=== PATIENT | female | born 1955 | race Caucasian/White ===

== ENCOUNTER 2023-09-28 06:12 | Outpatient (RCR) | payer MEDICARE, OTHER, SELFPAY | END 2023-09-28 23:59 | disposition home or self-care (01) | LOC: RPT 06:12 | PROVIDERS: ATTENDING PHYSICIAN Physician Assistant Surgical; FAMILY PHYSICIAN Internal Medicine | DX: Z47.89 Encounter for other orthopedic aftercare (principal); M54.2 Cervicalgia; Z73.6 Limitation of activities due to disability | CPT/HCPCS: 97110; 97162 ==

== ENCOUNTER → 2023-10-05 13:54 | Outpatient (REF) | payer MEDICARE, OTHER, SELFPAY | LOC: WDC 13:54 | PROVIDERS: ATTENDING PHYSICIAN Surgery; FAMILY PHYSICIAN Internal Medicine | DX: R92.2 Inconclusive mammogram (principal) | CPT/HCPCS: 76641 ==

== ENCOUNTER 2023-10-26 09:10 | Outpatient (RCR) | payer MEDICARE, OTHER, SELFPAY | END 2023-10-26 23:59 | disposition home or self-care (01) | LOC: RPT 09:10 | PROVIDERS: ATTENDING PHYSICIAN Physician Assistant Surgical; FAMILY PHYSICIAN Internal Medicine | DX: M54.2 Cervicalgia (principal); Z98.890 Other specified postprocedural states; Z73.6 Limitation of activities due to disability | CPT/HCPCS: 97010; 97110; 97140 ==

== ENCOUNTER → 2023-11-10 08:27 | Outpatient (REF) | payer MEDICARE, OTHER, SELFPAY | LOC: RAD 08:27 | PROVIDERS: ATTENDING PHYSICIAN Internal Medicine | DX: Z13.820 Encounter for screening for osteoporosis (principal); Z78.0 Asymptomatic menopausal state | CPT/HCPCS: 77080 ==

== ENCOUNTER → 2023-11-10 17:36 | Outpatient (REF) | payer MEDICARE, OTHER, SELFPAY | LOC: PAVMRI 17:36 | PROVIDERS: ATTENDING PHYSICIAN Internal Medicine | DX: M54.6 Pain in thoracic spine (principal) | CPT/HCPCS: 72146 ==

== ENCOUNTER 2023-11-23 08:58 | Outpatient (RCR) | payer MEDICARE, OTHER, SELFPAY | END 2023-11-23 23:59 | disposition home or self-care (01) | LOC: RPT 08:58 | PROVIDERS: ATTENDING PHYSICIAN Physician Assistant Surgical; FAMILY PHYSICIAN Internal Medicine | DX: M54.2 Cervicalgia (principal); Z98.890 Other specified postprocedural states; Z73.6 Limitation of activities due to disability | CPT/HCPCS: 97010; 97110; 97140 ==

== ENCOUNTER → 2023-11-23 10:12 | Outpatient (REF) | payer MEDICARE, OTHER, SELFPAY ==
[2023-11-23 11:50] LABS: ALT (SGPT) 25 U/L (0-35); AST (SGOT) 32 U/L (14-36); Albumin 4.6 g/dl (3.5-5.0); Alkaline Phosphatase 110 U/L (38-126); Blood Urea Nitrogen 26 mg/dl (7-17); Calcium 10.3 mg/dl (8.4-10.2); Carbon Dioxide 22 mmol/L (22-30); Chloride 106 mmol/L (98-107); Glucose 96 mg/dl (70-99); HDL Cholesterol 71 mg/dl; LDL Cholesterol, Calculated 93 mg/dl; Potassium 4.5 mmol/L (3.5-5.1); Sodium 137 mmol/L (135-145); Total Bilirubin 0.2 mg/dl (0.2-1.3); Total Cholesterol 201 mg/dl (50-199); Total Protein 7.6 g/dl (6.3-8.2); Triglyceride 187 mg/dl (10-149); Very Low Density Lipoprotein 37 mg/dl (0-30); eGFR > 60.00
[2023-11-23 12:19] LABS: TSH Reflex To Free T4 1.29 uIU/ml (0.47-4.68)
[2023-11-23 14:21] LABS: Glycohemoglobin (HgbA1c) 5.4 % (4.0-5.6)
== END ==
LOC: REG 10:12
PROVIDERS: ATTENDING PHYSICIAN Internal Medicine; REFERRING PHYSICIAN Internal Medicine
DX: I10 Essential (primary) hypertension (principal); R73.03 Prediabetes; E78.00 Pure hypercholesterolemia, unspecified; K76.0 Fatty (change of) liver, not elsewhere classified; E66.01 Morbid (severe) obesity due to excess calories
CPT/HCPCS: 36415; 80053; 80061; 83036; 84443

== ENCOUNTER 2023-12-21 08:55 | Outpatient (RCR) | payer MEDICARE, OTHER, SELFPAY | END 2023-12-21 23:59 | disposition home or self-care (01) | LOC: RPT 08:55 | PROVIDERS: ATTENDING PHYSICIAN Physician Assistant Surgical; FAMILY PHYSICIAN Internal Medicine | DX: M54.2 Cervicalgia (principal); Z98.890 Other specified postprocedural states; Z73.6 Limitation of activities due to disability | CPT/HCPCS: 97010; 97110; 97140 ==

== ENCOUNTER 2024-01-09 08:58 | Outpatient (RCR) | payer MEDICARE, OTHER, SELFPAY | END 2024-01-09 23:59 | disposition home or self-care (01) | LOC: RPT 08:58 | PROVIDERS: ATTENDING PHYSICIAN Physician Assistant Surgical; FAMILY PHYSICIAN Internal Medicine | DX: M54.2 Cervicalgia (principal); Z98.890 Other specified postprocedural states; Z73.6 Limitation of activities due to disability | CPT/HCPCS: 97110; 97140 ==

== ENCOUNTER 2024-01-11 07:03 | Emergency (ER) | payer MEDICARE, OTHER, SELFPAY ==
[2024-01-11 07:03] VITALS: BMI 40.0
[2024-01-11 07:04] VITALS: BP 188/108
--- NOTE | 2024-01-11 08:22 | ED.GENMED ---
History of Present Illness
General
Chief Complaint: Extremity Pain (non-traumatic)
Source: patient
Exam Limitations: none
Time Seen by Provider: 01/11/24 07:55
Travel History
Have you had any contact with someone who has COVID-19?: No
Do you have any symptoms of coronavirus? Fever > 100 degrees, chills, cough, shortness of breath, sore throat, loss of taste or smell, muscle aches, or headache?: No
History of Present Illness
History of Present Illness:
Patient with multiple complaints. Started with a migraine-like headache yesterday. Migraine felt like a typical migraine but more severe. Also lasted longer throughout the evening. Otherwise it was a typical migraine. Also had some epigastric
pain last evening that resolved. In addition she has had a few weeks of left arm pain and left calf pain and is concerned about a blood clot. Primary reason for being here is concern for blood clot. Headache is resolved she has no chest pain
shortness of breath abdominal pain or neurologic symptoms at this time
Past History
Past History
ED Past Medical History: Asthma, Fibromyalgia, GERD, HTN, Hypercholesterolemia, Psychiatric (Bipolar), Other (Previous history of superficial thrombosis and possible DVT), Other (IBS) and Other (migraines)
ED Past Surgical History: Gynecological, Orthopedic and Other (Gastric volvulous surgery in )
Social History
Tobacco: Non-smoker
Alcohol: None
Living: with family
Review of Systems
Review of Systems
All Other Systems: Not applicable
Constitutional: Denies fever
Respiratory: Reports no symptoms
Cardiac: Reports no symptoms
Phy Exam
Physical Exam
Physical Exam:
GENERAL: Alert and oriented in no apparent distress
EYE: Orbits normal.
NECK: Supple, no significant adenopathy.
ENT: Pharynx without erythema
CARDIAC: Regular rate and rhythm without any obvious murmurs.
LUNGS: Clear breath sounds,normal
ABDOMEN: Soft, without focal tenderness or distention
NEUROLOGICAL: Alert and oriented , grossly non-focal
SKIN: Warm and dry, no rash or lesion, no discoloration, skin intact.
MUSCULOSKELETAL: No edema,no deformity.Good color. No arm swelling. No cord. No leg swelling no cord. Good distal pulses and color. Pulses are strong bilaterally.
PSYCH: Normal and appropriate interaction.
Course
Orders/Labs/Results
Orders:
Orders
01/11/24 07:10
Electrocardiogram (*1) Urgent
Reason for Study: Chest Pain
EKG- Treatment ONCE
01/11/24 08:03
IV Insert/Care/Rem.- Treatment PRN
Pulse Ox/cont/shift [RESP] Stat
Quantity: 1
US Periph Venous LOWER Ext LT Urgent
Comment:
Reason For Exam: pain
US Periph Venous UPPER Ext LT Urgent
Comment:
Reason For Exam: pain
01/11/24 08:04
Cardiac Monitoring- Treatment ONCE
01/11/24 09:43
Complete Blood Count/With Diff Urgent
Comprehensive Metabolic Panel Urgent
D-Dimer Urgent
Lipase Urgent
Troponin I Urgent
Abnormal Lab Results
01/11/24
09:43
MCHC 32.8 L g/dL
(33.0-37.0)
RDW 15.7 H %
(11.5-14.5)
Monocytes % 10.9 H %
(1.7-9.3)
D-Dimer 0.82 H ug/mlFEU
(0.00-0.50)
Chloride 109 H mmol/L
(98-107)
01/11/24 09:43
01/11/24 09:43
Vital Signs
Initial and Last Documented VS:
Initial Vital Signs
Temp Pulse Resp BP Pulse Ox
98.2 F 115 20 188/108 97
01/11/24 07:04 01/11/24 07:04 01/11/24 07:04 01/11/24 07:04 01/11/24 07:04
Last Documented Vital Signs
Temp Pulse Resp BP Pulse Ox
98.2 F 80 19 116/62 98
01/11/24 07:04 01/11/24 12:15 01/11/24 12:15 01/11/24 12:00 01/11/24 12:15
MDM/Problems Addressed
Differential Diagnosis Includes:
Patient has multiple complaints. Major ones appear to be concern for a blood clot to the left arm and left leg. Clinically doubt this. However we will get a Doppler ultrasound. No clinical arterial issue. Highly highly doubt dissection. Highly
doubt cardiac. Epigastric pain has resolved. Very low suspicion for intracranial bleed with the headache given the chronic headaches for years and the fact that she describes this as it is a migraine although more severe. She has had the severity
of migraine in the past. Workup will include ultrasounds of the left arm and left leg cardiac workup D-dimer.
*Radiology
Radiology exam reviewed: radiology read reviewed (Negative leg and arm ultrasound)
*Pulse Oximetry
Patient hypoxic: no
*EKG
Interpreted by ED Provider?: Yes
Interpretation: normal
Comparison EKG: no changes
Heart Rate: 93
Rate: normal
Rhythm: sinus
[place]: normal axis
Interval: normal interval
QRS Pattern: normal QRS
Ischemia: no ischemia
*Sewing Techniques Demonstrator Interpretation
Rate: normal
Interpretation: normal
Heart Rate: 78
Rhythm: sinus
*Critical Care Note
Total Time (30-74mins, 75-104mins- exclusive of procedures): Not Applicable
Data Reviewed
Review of Other/Old Records Reveals: Labs, Records and Testing
Update Note
Update Note:
Patient is remained stable and nontoxic. Of her testing she does have a trace positive D-dimer. Clinically however she has no chest pain or shortness of breath she presents really for evaluation of this left arm and left leg pain and concern for
DVT. There is no DVT in the arm or leg. She does have a dye allergy to the IV dye. This caused hives all over. Lengthy review and discussion and joint decision-making with the patient. Risk of allergic reaction versus very sick of missing a
pulmonary emboli. Very very low suspicion for pulmonary emboli given all of the above, and joint decision we will hold on CT scan.
1255.... Patient is remained medically stable and nontoxic. Discharged to follow-up
ED Attending Note
-
Portions of this chart may have been created with voice recognition software.� Occasional wrong word or��sound alike� substitutions may have occurred due to the inherent limitations of voice recognition software.
Discharge Plan
Departure
Patient Disposition: Home (Routine Discharge)
Date of Disposition: 01/11/24
Time of Disposition: 12:55
Patient with high blood pressure during this ER visit?: Yes
Discharge Problem:
Left arm and left leg pain, History of migraines
Instructions: Migraines (DC), BLOOD PRESSURE
Prescriptions:
No Action
Centrum Silver Women 1 EACH tablet
1 ea PO DAILY
fluticasone propionate 1 SPRAY spray,suspension
2 spray intranasal DAILYPRN PRN (Reason: allergies)
famotidine 20 MG tablet
40 mg PO QPM
nortriptyline 10 MG capsule
10 mg PO Q48H
albuterol sulfate 1 PUFF HFA aerosol inhaler
2 puff inhalation R Q6HPRN PRN (Reason: asthma)
escitalopram oxalate 10 MG tablet
10 mg PO QPM
Systane Ultra (PF) 1 EACH dropperette
1 drp BOTH EYES QID
metformin 500 MG tablet extended release 24 hr
500 mg PO BID
Azo Bladder Control 300 mg Capsule
1 cap PO DAILYPRN PRN (Reason: INCREASE URINE FREQUENCY) Qty: 0
primidone 50 MG tablet
50 mg PO BID
simethicone [Gas-X] 80 mg Tablet,Chewable
160 mg PO DAILYPRN PRN (Reason: GAS PAINS)
nortriptyline 10 MG capsule
20 mg PO Q48H
azelastine 1 SPRAY aerosol,spray
2 spray intranasal BID
fexofenadine [Amisha] 180 mg Tablet
180 mg PO DAILY
rosuvastatin 20 mg Tablet
20 mg PO DAILY
estradiol [Estrace] 0.01 % (0.1 mg/gram) Cream
1 g VAGINAL SUFRSA
topiramate [Topamax] 50 mg Tablet
100 mg PO Q48H
cholecalciferol (vitamin D3) [Vitamin D3] 50 mcg (2,000 unit) Tablet
50 mcg PO DAILY
rizatriptan 10 mg Tablet
0 mg PO .COMPLEX
Rx Instructions:
take 1 tab at onset of headache; if no relief may repeat 1 tab after at least 2 hrs; max = 3 tabs/24 hr
topiramate [Topamax] 50 mg Tablet
150 mg PO Q48H
Visbiome 112.5 billion cell Capsule
1 cap PO DAILY
fluticasone propion-salmeterol [Advair HFA] 115-21 mcg/actuation Hfa Aerosol Inhaler
2 puff INHALATION R BID
Referrals:
Michelle Ortega MD [Family Provider] - Follow up in 2-3 days
Activity Restrictions/Additional Instructions:
Follow-up closely with your primary physician
Return with any unusual headaches, recurring left arm or left leg pain, chest pain shortness of breath or any other concerning symptoms
Interventions
Interventions:
*Risk Screen - Suicide Last Done: 01/11/24 07:04
*General Assessment Last Done: 01/11/24 07:04
*Neglect/Abuse Screening Last Done: 01/11/24 07:04
ED-Skin Assessment Last Done: 01/11/24 09:25
ED-Peripheral Vascular Assessment Last Done: 01/11/24 09:25
ED- Neurological Assessment Last Done: 01/11/24 09:25
ED-Musculoskeletal Assessment Last Done: 01/11/24 09:25
ED- Cardiac Assessment Last Done: 01/11/24 09:25
Discharge Date and Time
Print Language: FRISIAN
[2024-01-11 09:52] LABS: % Basophils 0.8 % (0-2); % Eosinophils 4.8 % (0-6); % Immature Granulocytes 0.2 % (0-0.5); % Lymphocytes 24.1 % (20.5-51.1); % Monocytes 10.9 % (1.7-9.3); % Neutrophils 59.2 % (42.2-75.2); Absolute Eosinophils 0.3 10^3/uL (0-0.7); Absolute Lymphocytes 1.3 10^3/uL (1.2-3.4); Absolute Monocytes 0.6 10^3/uL (0.1-0.6); Absolute Neutrophils 3.1 10^3/uL (1.4-6.5); Hematocrit 38.1 % (37.0-47.0); Hemoglobin 12.5 g/dL (12.0-16.0); Mean Corp Hgb Conc. 32.8 g/dL (33.0-37.0); Mean Corpuscular Hgb 27.2 pg (27.0-31.0); Mean Corpuscular Volume 82.8 fL (81.0-99.0); Mean Platelet Volume 8.9 fL (7.4-10.4); Nucleated Red Blood Cells % 0 %; Platelet Count 224 10^3/uL (130-400); Red Cell Dist. Width 15.7 % (11.5-14.5); White Blood Cell Count 5.2 10^3/uL (4.8-10.8)
[2024-01-11 10:08] LABS: ALT (SGPT) 17 U/L (0-35); AST (SGOT) 24 U/L (14-36); Albumin 3.9 g/dl (3.5-5.0); Alkaline Phosphatase 86 U/L (38-126); Blood Urea Nitrogen 13 mg/dl (7-17); Calcium 10.2 mg/dl (8.4-10.2); Carbon Dioxide 23 mmol/L (22-30); Chloride 109 mmol/L (98-107); Estimated Creatinine Clearance 105 ml/min; Glucose 96 mg/dl (70-99); Potassium 4.2 mmol/L (3.5-5.1); Sodium 141 mmol/L (135-145); Total Bilirubin 0.2 mg/dl (0.2-1.3); Total Protein 6.5 g/dl (6.3-8.2); eGFR > 60.00
[2024-01-11 10:17] LABS: D-Dimer 0.82 ug/mlFEU (0.00-0.50); Troponin I < 0.012 ng/ml
[2024-01-11 10:33] VITALS: BP 131/87
[2024-01-11 11:00] VITALS: BP 113/67
[2024-01-11 11:11] LABS: Lipase 139 U/L (23-300)
[2024-01-11 12:00] VITALS: BP 116/62
[2024-01-11 13:09] VITALS: BP 119/75
== END 2024-01-11 13:23 | disposition home or self-care (01) ==
LOC: EMR 07:03
PROVIDERS: EMERGENCY PHYSICIAN Emergency Medicine; FAMILY PHYSICIAN Internal Medicine
DX: M79.605 Pain in left leg (principal); M79.602 Pain in left arm; G43.909 Migraine, unspecified, not intractable, without status migrainosus; I10 Essential (primary) hypertension
CPT/HCPCS: 99285; 80053; 83690; 84484; 85025; 85379; 93005; 93971

== ENCOUNTER 2024-01-26 14:13 | Outpatient (RCR) | payer MEDICARE, OTHER, SELFPAY | END 2024-01-26 23:59 | disposition home or self-care (01) | LOC: RPT 14:13 | PROVIDERS: ATTENDING PHYSICIAN Psychiatry & Neurology Neurology; FAMILY PHYSICIAN Physician Assistant Surgical | DX: M54.59 Other low back pain (principal); M54.17 Radiculopathy, lumbosacral region; Z73.6 Limitation of activities due to disability | CPT/HCPCS: 97010; 97110; 97162 ==

== ENCOUNTER 2024-02-22 08:54 | Outpatient (RCR) | payer MEDICARE, OTHER, SELFPAY | END 2024-02-22 23:59 | disposition home or self-care (01) | LOC: RPT 08:54 | PROVIDERS: ATTENDING PHYSICIAN Psychiatry & Neurology Neurology; FAMILY PHYSICIAN Physician Assistant Surgical | DX: M54.59 Other low back pain (principal); M54.17 Radiculopathy, lumbosacral region; Z73.6 Limitation of activities due to disability | CPT/HCPCS: 97010; 97110 ==

== ENCOUNTER → 2024-02-23 10:07 | Outpatient (REF) | payer MEDICARE, OTHER, SELFPAY ==
[2024-02-23 10:33] LABS: % Basophils 0.9 % (0-2); % Eosinophils 1.9 % (0-6); % Immature Granulocytes 0.4 % (0-0.5); % Lymphocytes 19.3 % (20.5-51.1); % Neutrophils 68.5 % (42.2-75.2); Absolute Basophils 0.1 10^3/uL (0-0.2); Absolute Eosinophils 0.1 10^3/uL (0-0.7); Absolute Lymphocytes 1.1 10^3/uL (1.2-3.4); Absolute Monocytes 0.5 10^3/uL (0.1-0.6); Absolute Neutrophils 3.9 10^3/uL (1.4-6.5); Hematocrit 38.4 % (37.0-47.0); Hemoglobin 12.5 g/dL (12.0-16.0); Mean Corp Hgb Conc. 32.6 g/dL (33.0-37.0); Mean Corpuscular Hgb 26.9 pg (27.0-31.0); Mean Corpuscular Volume 82.6 fL (81.0-99.0); Mean Platelet Volume 9.6 fL (7.4-10.4); Nucleated Red Blood Cells % 0 %; Platelet Count 240 10^3/uL (130-400); Red Blood Cell Count 4.65 10^6/uL (4.20-5.40); Red Cell Dist. Width 15.4 % (11.5-14.5); White Blood Cell Count 5.7 10^3/uL (4.8-10.8)
[2024-02-23 11:01] LABS: ALT (SGPT) 22 U/L (0-35); AST (SGOT) 29 U/L (14-36); Albumin 4.2 g/dl (3.5-5.0); Alkaline Phosphatase 85 U/L (38-126); Blood Urea Nitrogen 14 mg/dl (7-17); Calcium 9.6 mg/dl (8.4-10.2); Carbon Dioxide 24 mmol/L (22-30); Chloride 109 mmol/L (98-107); Glucose 104 mg/dl (70-99); HDL Cholesterol 61 mg/dl; LDL Cholesterol, Calculated 104 mg/dl; Potassium 4.8 mmol/L (3.5-5.1); Sodium 140 mmol/L (135-145); Total Bilirubin 0.3 mg/dl (0.2-1.3); Total Cholesterol 203 mg/dl (50-199); Triglyceride 193 mg/dl (10-149); Very Low Density Lipoprotein 38 mg/dl (0-30); eGFR > 60.00
[2024-02-23 11:29] LABS: TSH 1.26 uIU/ml (0.47-4.68)
== END ==
LOC: REG 10:07
PROVIDERS: ATTENDING PHYSICIAN Internal Medicine; REFERRING PHYSICIAN Internal Medicine
DX: I10 Essential (primary) hypertension (principal); R73.03 Prediabetes; E78.00 Pure hypercholesterolemia, unspecified; E66.01 Morbid (severe) obesity due to excess calories
CPT/HCPCS: 36415; 80053; 80061; 84443; 85025

== ENCOUNTER → 2024-02-27 13:38 | Outpatient (REF) | payer MEDICARE, OTHER, SELFPAY | LOC: WDC 13:38 | PROVIDERS: ATTENDING PHYSICIAN Obstetrics & Gynecology Gynecologic Oncology; FAMILY PHYSICIAN Internal Medicine | DX: Z12.31 Encounter for screening mammogram for malignant neoplasm of breast (principal) | CPT/HCPCS: 77063; 77067 ==

== ENCOUNTER 2024-02-28 15:27 | Outpatient (RCR) | payer MEDICARE, OTHER, SELFPAY | END 2024-02-28 23:59 | disposition home or self-care (01) | LOC: RPT 15:27 | PROVIDERS: ATTENDING PHYSICIAN Psychiatry & Neurology Neurology; FAMILY PHYSICIAN Physician Assistant Surgical | DX: M54.59 Other low back pain (principal); M54.17 Radiculopathy, lumbosacral region; Z73.6 Limitation of activities due to disability | CPT/HCPCS: 97110 ==

== ENCOUNTER → 2024-05-05 10:22 | Outpatient (REF) | payer MEDICARE, OTHER, SELFPAY ==
[2024-05-05 11:37] LABS: % Eosinophils 3.2 % (0-6); % Immature Granulocytes 0.2 % (0-0.5); % Monocytes 9.7 % (1.7-9.3); % Neutrophils 55.9 % (42.2-75.2); Absolute Basophils 0.1 10^3/uL (0-0.2); Absolute Eosinophils 0.2 10^3/uL (0-0.7); Absolute Lymphocytes 1.5 10^3/uL (1.2-3.4); Absolute Monocytes 0.5 10^3/uL (0.1-0.6); Absolute Neutrophils 2.8 10^3/uL (1.4-6.5); Hemoglobin 12.8 g/dL (12.0-16.0); Mean Corpuscular Hgb 26.3 pg (27.0-31.0); Mean Corpuscular Volume 82.1 fL (81.0-99.0); Mean Platelet Volume 9.7 fL (7.4-10.4); Nucleated Red Blood Cells % 0 %; Platelet Count 262 10^3/uL (130-400); Red Blood Cell Count 4.87 10^6/uL (4.20-5.40); Red Cell Dist. Width 14.8 % (11.5-14.5)
[2024-05-05 11:58] LABS: ALT (SGPT) 16 U/L (0-35); AST (SGOT) 27 U/L (14-36); Albumin 4.4 g/dl (3.5-5.0); Alkaline Phosphatase 89 U/L (38-126); Blood Urea Nitrogen 14 mg/dl (7-17); Carbon Dioxide 23 mmol/L (22-30); Chloride 105 mmol/L (98-107); Glucose 94 mg/dl (70-99); HDL Cholesterol 51 mg/dl; LDL Cholesterol, Calculated 89 mg/dl; Potassium 4.6 mmol/L (3.5-5.1); Sodium 144 mmol/L (135-145); Total Bilirubin 0.5 mg/dl (0.2-1.3); Total Cholesterol 190 mg/dl (50-199); Total Protein 6.9 g/dl (6.3-8.2); Triglyceride 253 mg/dl (10-149); Very Low Density Lipoprotein 50 mg/dl (0-30); eGFR > 60.00
[2024-05-05 12:29] LABS: TSH Reflex To Free T4 1.33 uIU/ml (0.47-4.68)
[2024-05-05 13:49] LABS: Glycohemoglobin (HgbA1c) 5.3 % (4.0-5.6)
== END ==
LOC: REG 10:22
PROVIDERS: ATTENDING PHYSICIAN Physician Assistant; FAMILY PHYSICIAN Internal Medicine
DX: R73.03 Prediabetes (principal); E78.00 Pure hypercholesterolemia, unspecified; I10 Essential (primary) hypertension; E78.2 Mixed hyperlipidemia; R73.01 Impaired fasting glucose; E88.810 Metabolic syndrome; E66.01 Morbid (severe) obesity due to excess calories
CPT/HCPCS: 36415; 80053; 80061; 83036; 84443; 84550; 85025

== ENCOUNTER → 2024-07-03 13:49 | Outpatient (REF) | payer MEDICARE, OTHER, SELFPAY | LOC: RAD 13:49 | PROVIDERS: ATTENDING PHYSICIAN Internal Medicine; FAMILY PHYSICIAN Internal Medicine | DX: R05.3 Chronic cough (principal) | CPT/HCPCS: 71046 ==

== ENCOUNTER → 2024-07-19 11:08 | Outpatient (REF) | payer MEDICARE, OTHER, SELFPAY | LOC: RCS 11:08 | PROVIDERS: ATTENDING PHYSICIAN Internal Medicine; FAMILY PHYSICIAN Internal Medicine | DX: I77.1 Stricture of artery (principal) | CPT/HCPCS: 93306 ==

== ENCOUNTER 2024-08-30 20:05 | Inpatient (IN) | payer MEDICARE, OTHER, SELFPAY ==
[2024-08-30 12:54] VITALS: BP 146/96
[2024-08-30 13:21] LABS: % Basophils 0.3 % (0-2); % Eosinophils 0.2 % (0-6); % Immature Granulocytes 0.2 % (0-0.5); % Lymphocytes 8.2 % (20.5-51.1); % Monocytes 7.3 % (1.7-9.3); % Neutrophils 83.8 % (42.2-75.2); Absolute Lymphocytes 0.7 10^3/uL (1.2-3.4); Absolute Monocytes 0.7 10^3/uL (0.1-0.6); Absolute Neutrophils 7.6 10^3/uL (1.4-6.5); Hematocrit 35.8 % (37.0-47.0); Hemoglobin 11.8 g/dL (12.0-16.0); Mean Corpuscular Hgb 26.5 pg (27.0-31.0); Mean Corpuscular Volume 80.4 fL (81.0-99.0); Mean Platelet Volume 9.4 fL (7.4-10.4); Nucleated Red Blood Cells % 0 %; Platelet Count 236 10^3/uL (130-400); Red Blood Cell Count 4.45 10^6/uL (4.20-5.40); Red Cell Dist. Width 15.5 % (11.5-14.5); White Blood Cell Count 9.1 10^3/uL (4.8-10.8)
[2024-08-30 13:36] LABS: ALT (SGPT) 28 U/L (0-35); AST (SGOT) 36 U/L (14-36); Albumin 4.4 g/dl (3.5-5.0); Alkaline Phosphatase 94 U/L (38-126); Blood Urea Nitrogen 15 mg/dl (7-17); Calcium 9.6 mg/dl (8.4-10.2); Carbon Dioxide 22 mmol/L (22-30); Chloride 101 mmol/L (98-107); Glucose 127 mg/dl (70-99); Potassium 4.2 mmol/L (3.5-5.1); Sodium 135 mmol/L (135-145); Total Bilirubin 0.3 mg/dl (0.2-1.3); eGFR > 60.00
--- NOTE | 2024-08-30 16:47 | ED.GENMED ---
History of Present Illness
General
Chief Complaint: Breathing Problem
Source: patient
Exam Limitations: none
Time Seen by Provider: 08/30/24 16:26
Nursing documentation reviewed up to this point in time: agreed with
History of Present Illness
History of Present Illness:
Patient to ED with complaint of worseing cough, SOB. States cough started on 08/23 and contninues to worsen. Currently on day 3 of Prednisone 40mg without improvement. Duoneb [id number] at home without improvement. Sent to ED for eval. Denies
fever/chills. Brought self to ED for eval.
Past History
Past History
ED Past Medical History: Asthma, Fibromyalgia, GERD, HTN, Hypercholesterolemia, Psychiatric (Bipolar), Other (Previous history of superficial thrombosis and possible DVT), Other (IBS) and Other (migraines)
ED Past Surgical History: Gynecological, Orthopedic and Other (Gastric volvulous surgery in )
Social History
Tobacco: Non-smoker
Alcohol: None
Living: with family
Review of Systems
Review of Systems
Allergies reviewed?: Yes
All Other Systems: ROS reviewed and negative except as documented in HPI and ROS
Constitutional: Reports no symptoms
EENT: Reports no symptoms
Respiratory: Reports cough and trouble breathing
Cardiac: Reports no symptoms
ABD/GI: Reports no symptoms
: Reports no symptoms
Musculoskeletal: Reports no symptoms
Skin: Reports no symptoms
Neurological: Reports no symptoms
Psychiatric: Reports no symptoms
Phy Exam
General Physical Exam
General Presentation: mild distress
General age: appears stated age
General Skin: warm and dry
General Habitus: normal
Cardiovascular Exam
Cardiovascular Exam: regular rate/rhythm
Pulmonary Exam
Cough: coarse cough
Breath Sounds: Rhonchi: generalized
Musculoskeletal Exam
Musculoskeletal Exam: full ROM and neuro vasc intact
Skin Exam
Skin Exam: normal color, warm/dry and no rash
Psychiatric Exam
Psychiatric Exam: normal mood/affect
Scores
Heart Failure Risk
Heart Failure Risk Score: Not Applicable
Course
Orders/Labs/Results
Orders:
Orders
08/30/24 12:59
Electrocardiogram (*1) Urgent
Reason for Study: Shortness of Breath
EKG- Treatment ONCE
CXR2 [CR Chest - 2 Views ] Urgent
Comment:
Reason For Exam: cough with sob
08/30/24 13:08
Complete Blood Count/With Diff Urgent
Comprehensive Metabolic Panel Urgent
RSV [Respiratory Syncytial Virus] Urgent
JEFF[place] Source: Nasal Swab
Specimen Description:
Date Specimen was Collected: 08/30/24
Time Specimen was Collected: 12:59
08/30/24 16:46
Ipratropium/Albuterol Sulfate [Duoneb] 3 ml INH R NOW STA
08/30/24 17:24
CefTRIAXone [Rocephin] 1,000 mg IV NOW STA
08/30/24 17:25
Doxycycline [Vibramycin] 100 mg PO NOW STA
08/30/24 19:04
Admit/Transfer Patient As Directed
Co-Sign Provider:
Level of Care: Inpatient admission
Assign to:: Medical/Surgical
Physician / Group: [email or web address]
Diagnosis: PNA
Reason for Hospitalization: PNA
Expected length of stay greater than two midnights?: Yes
ELOS- Estimated Length of Stay in days: 3
I certify the patient meets the requirements for IP care: Yes
08/30/24 19:08
Code Status As Directed
Resuscitation Status: Full Code
Abnormal Lab Results
08/30/24
13:08
Hgb 11.8 L g/dL
(12.0-16.0)
Hct 35.8 L %
(37.0-47.0)
MCV 80.4 L fL
(81.0-99.0)
MCH 26.5 L pg
(27.0-31.0)
RDW 15.5 H %
(11.5-14.5)
Absolute Neuts (auto) 7.6 H 10^3/uL
(1.4-6.5)
Absolute Lymphs (auto) 0.7 L 10^3/uL
(1.2-3.4)
Absolute Monos (auto) 0.7 H 10^3/uL
(0.1-0.6)
Neutrophils % 83.8 H %
(42.2-75.2)
Lymphocytes % 8.2 L %
(20.5-51.1)
Glucose 127 H mg/dl
(70-99)
08/30/24 13:08
08/30/24 13:08
Vital Signs
Initial and Last Documented VS:
Initial Vital Signs
Temp Pulse Resp BP Pulse Ox
98.4 F 107 18 146/96 98
08/30/24 12:54 08/30/24 12:54 08/30/24 12:54 08/30/24 12:54 08/30/24 12:54
Last Documented Vital Signs
Temp Pulse Resp BP Pulse Ox
98.7 F 95 15 111/66 93
08/30/24 18:10 08/30/24 20:00 08/30/24 20:00 08/30/24 20:00 08/30/24 20:00
*Critical Care Note
Total Time (30-74mins, 75-104mins- exclusive of procedures): Not Applicable
Update Note
Update Note:
Patient to ED with complaint of SOB, course cough that continues to worsen. SYmptoms started 08/23. Currently on Prednisone 40mg daily and duonebs without improvement. CXR concerning for left basilar pneumonia. ANtibiotics started in dept.
Pulse ox 90-91% RA at rest. WIll admit to hospitalists service.
ED Attending Note
-
Portions of this chart may have been created with voice recognition software.� Occasional wrong word or��sound alike� substitutions may have occurred due to the inherent limitations of voice recognition software.
Discharge Plan
Departure
Patient Disposition: Admit
Date of Disposition: 08/30/24
Time of Disposition: 17:26
Presentation/result/management discussed w/ accepting MD/DO: Hospitalist
Discharge Problem:
Pneumonia, Hypoxemia
Interventions
Interventions:
*Risk Screen - Suicide Last Done: 08/30/24 12:54
*General Assessment Last Done: 08/30/24 18:12
*Neglect/Abuse Screening Last Done: 08/30/24 12:54
ED- Fall Risk Assessment Last Done: 08/30/24 22:19
*ED COVID-19 Vaccine History Last Done: 08/30/24 18:12
ED- Cardiac Assessment Last Done: 08/30/24 18:29
ED- Pulmonary Assessment Last Done: 08/30/24 18:29
[2024-08-30] MEDS: DUONEB 3 ML INH (17:12)
[2024-08-30 18:06] VITALS: BP 122/67
[2024-08-30] MEDS: ROCEPHIN 1000 MG IV (18:08)
[2024-08-30] MEDS: VIBRAMYCIN 100 MG PO (18:08)
[2024-08-30 18:10] VITALS: BP 122/67
--- NOTE | 2024-08-30 18:53 | HPS.HSE ---
Family Physician
-
Family Physician: Michelle Ortega
Chief Complaint
-
cough, SOB, on OP ABx
History of Present Illness
HPI
58M HX Asthma, HTN, Bipolar disorder , prior HX DVT seen at ER ;
- worsening cough, SOB
- cough started on 08/23 and contninues to worsen.
Currently on day 3 of Prednisone 40mg without improvement. Duoneb [id number] at home without improvement.
ROS
Denies fever/chills.
Brought self to ED for eval
Medical History
Past Medical History
Past Medical History: Reports Asthma, Fibromyalgia, HTN, Hypercholesterolemia, Psychiatric (Bipolar) and Other (IBS, migraines)
Past Surgical History: Reports Bowel Resection (Gastric volvulous surgery in ), Gynocological and Orthopedic
Social History
Tobacco: Non-smoker
Alcohol: None
Family History
Family History: Not pertinent
Allergies / Home Medications
Allergies reflects when Allergies were last updated in [facility].
Home Medications with original date entered in [facility]
Allergy/Medication List:
Allergies
Allergy/AdvReac Type Severity Reaction Status Date / Time
duloxetine Allergy Unknown Rash Verified 08/30/24 12:58
Iodinated Contrast Media Allergy Unknown Rash - Verified 08/30/24 12:58
[Iodinated Contrast- Oral Only with
and IV Dye] CT scan dye
tramadol [From Ultram] Allergy Unknown 'throat Verified 08/30/24 12:58
closes'
ciprofloxacin Allergy Rash Verified 08/30/24 12:58
cyclobenzaprine HCl Allergy hand Verified 08/30/24 12:58
[From Flexeril] tremors/facial
tremors
duloxetine HCl Allergy severe Verified 08/30/24 12:58
[From Cymbalta] hand and
facial
tremors
iodine Allergy Unknown Verified 08/30/24 12:58
ketorolac Allergy throat Verified 08/30/24 12:58
closes up
morphine Allergy Pharmacy Verified 08/30/24 12:58
to Review
oxycodone Allergy 'unresponsive Verified 08/30/24 12:58
for 26 hrs
after knee
surgery'
oxycodone HCl Allergy 'unresponsive Verified 08/30/24 12:58
[From OxyContin] for 26
hrs. after
knee
sirgery'
tromethamine Allergy Anaphylaxis Verified 08/30/24 12:58
NSAIDS (Non-Steroidal AdvReac Unknown Nausea / Verified 08/30/24 12:58
Anti-Inflamma Vomiting
pollen,dust Allergy itchy Uncoded 08/30/24 12:58
eyes,
runny nose
Home Medications
fluticasone propionate 50 mcg/actuation nasal spray,suspension 2 spray intranasal DAILYPRN PRN allergies 03/30/16
[id number] 8 mg-folic 400 mcg-K 50 mcg-lutein 300 mcg tablet (Centrum Silver Women) 1 tab PO DAILY 03/30/16
albuterol sulfate 90 mcg/actuation aerosol inhaler 2 puff inhalation R Q6HPRN PRN asthma 05/03/18
escitalopram oxalate 10 mg tablet 10 mg PO DAILY 05/03/18
metformin 500 mg tablet,extended release 24 hr 500 mg PO BID 05/03/18
nortriptyline 10 mg capsule 10 mg PO HS 05/03/18
peg 400-propylene glycol (PF) 0.4 %-0.3 % eye drops in a dropperette (Systane Ultra (PF)) 1 drp BOTH EYES TID 05/03/18
pumpkin seed extract-soy germ 300 mg capsule (Azo Bladder Control) 1 cap PO DAILYPRN PRN INCREASE URINE FREQUENCY ##0 05/23/18
primidone 50 mg tablet 50 mg PO BID 03/18/20
simethicone 80 mg chewable tablet 160 mg PO DAILYPRN PRN GAS PAINS 03/18/20
cholecalciferol (vitamin D3) 50 mcg (2,000 unit) tablet (Vitamin D3) 50 mcg PO DAILY 08/25/23
estradiol 0.01% (0.1 mg/gram) vaginal cream (Estrace) 1 g vaginal DAILYPRN PRN dryness 08/25/23
fexofenadine 180 mg tablet 180 mg PO DAILY 08/25/23
rosuvastatin 20 mg tablet 20 mg PO DAILY 08/25/23
topiramate 50 mg tablet (Topamax) 100 mg PO Q48H@1800 08/25/23
Lactobac no.2-Bifidobac no.1-S. thermo 112.5 billion cell capsule (Visbiome) 1 cap PO DAILY 01/11/24
rizatriptan 10 mg tablet 10 mg PO DAILYPRN PRN migraine 01/11/24
topiramate 50 mg tablet (Topamax) 150 mg PO Q48H@1800 01/11/24
azelastine 137 mcg (0.1 %) nasal spray 2 spray intranasal BID 08/30/24
esomeprazole magnesium 40 mg capsule,delayed release 40 mg PO DAILY 08/30/24
famotidine 40 mg tablet 40 mg PO HS 08/30/24
fluticasone propionate 230 mcg-salmeterol 21 mcg/actuation HFA inhaler (Advair HFA) 2 puff inhalation R BID 08/30/24
ipratropium 0.5 mg-albuterol 3 mg (2.5 mg base)/3 mL nebulization soln 3 ml inhalation R Q4HPRN PRN sob 08/30/24
prednisone 20 mg tablet 40 mg PO DAILY 08/30/24
Review of Systems
-
Constitutional: Reports No Symptoms
EENT: Reports No Symptoms
Respiratory: Reports See HPI, Cough and Trouble Breathing
Cardiac: Reports No Symptoms
Abdomen/GI: Reports No Symptoms
: Reports No Symptoms
Musculoskeletal: Reports No Symptoms
Skin: Reports No Symptoms
Neurological: Reports No Symptoms
Endocrine: Reports No Symptoms
Hematologic/Lymphatic: Reports No Symptoms
Psych: Reports No Symptoms
Physical Exam
Vital Signs
Vital Signs
Temp Pulse Resp BP Pulse Ox
98.7 F 108 18 122/67 92
08/30/24 18:10 08/30/24 18:30 08/30/24 18:15 08/30/24 18:10 08/30/24 18:30
Physical Exam
General: Well Developed, Well Nourished and Appears in Distress (mild )
HEENT: NormoCephalic, Moist mucous membranes and Atraumatic
Respiratory: Clear and Other (cough with breathing )
Cardiac: S1/S2 and Regular Rhythm; No Murmur or Rub
GI: Soft, Non Tender, Non Distended and Normal Bowel Sounds; No Organomegaly
Rectal: Deferred by Provider
Musculoskeletal: No Clubbing, No Cyanosis and No Edema
Skin: No Rash
Neuro: Awake, Alert, AO x 3, Nonfocal/grossly intact and Other (fine tremors of both hands)
Psych: Calm, Intact Judgment/Insight and Anxious
Laboratory Results
-
08/30/24 13:08
08/30/24 13:08
Laboratory Results
Total Bilirubin 0.3 mg/dl (0.2-1.3) 08/30/24 13:08
AST 36 U/L (14-36) 08/30/24 13:08
ALT 28 U/L (0-35) 08/30/24 13:08
Alkaline Phosphatase 94 U/L (38-126) 08/30/24 13:08
Data Reviewed
-
Diagnostic Radiology: Report Reviewed by me
Lab Data: Labs Reviewed by me
Impression/Plan
-
Reviewed VS: Afebrile ST @ low 100 Normotensive POx low 90s
Abnormal Lab Results
08/30/24
13:08
Hgb 11.8 L
Hct 35.8 L
MCV 80.4 L
MCH 26.5 L
RDW 15.5 H
Absolute Neuts (auto) 7.6 H
Absolute Lymphs (auto) 0.7 L
Absolute Monos (auto) 0.7 H
Neutrophils % 83.8 H
Lymphocytes % 8.2 L
Glucose 127 H
Data
Nl WCC
Hgb 11.8
nl BMP
CXR
Left basilar ATX vs. PNA
07/19/24 ECHO
1. Normal LV size and function with EF 60-65%
2. Aortic sclerosis without stenosis
ASSESSMENT & PLAN
Presumed CAP Lt basilar lung - failed OP ABx
- Agree with IV CFTZ and PO Doxy
- check PCT
- f/u T, [facility]
- f/y ST, POx
Known chr HX
HX Polypharmacy allergy
Fibromyalgia
HTN
Hypercholesterolemia
Bipolar disorder
Prior HX superficial thrombosis and possible DVT
IBS
Mmigraines
DVT Px: LMWH
Code: Full
IP MS
[2024-08-30 20:00] VITALS: BP 111/66
[2024-08-30 23:39] VITALS: BP 122/91
[2024-08-31 00:14] VITALS: BP 154/90; BMI 40.8
[2024-08-31] MEDS: PAMELOR 10 MG PO ×2 (00:32→21:41)
[2024-08-31] MEDS: MYSOLINE 50 MG PO ×3 (00:32→21:40)
[2024-08-31] MEDS: PEPCID 40 MG PO ×2 (00:32→21:45)
[2024-08-31] MEDS: ADVAIR HFA 230/21 MCG INHALER INH (01:53)
[2024-08-31] MEDS: DUONEB 3 ML INH ×5 (02:04→19:50)
[2024-08-31 06:00] VITALS: BMI 40.8
[2024-08-31 07:35] VITALS: BP 144/89
--- NOTE | 2024-08-31 08:10 | PTCARENOTE ---
Addendum entered by Petra Echavarria RN 08/31/24 16:29:
patient with audible loud rhonchi b/l, frequent harsh, nonproductive weak cough. +SOB with little exertion. ra sao2 88-90% at 0735, so 2L NC applied with sao2 improving to 95%. I notified Dr. Kearns requesting duonebs around the clock and PRN,
flutter, chest PT, acapella and IS and Mucinex. (see new orders), will continue to monitor.
Original Note:
patient with audible loud rhonchi b/l, frequent harsh, nonproductive weak cough. +SOB with little exertion. ra sao2 88-90%. I notified Dr. Kearns requesting duonebs around the clock and PRN, flutter, chest PT, acapella and IS and Mucinex. (see new
orders), will continue to monitor.
[2024-08-31 08:22] LABS: % Basophils 0.4 % (0-2); % Eosinophils 0.6 % (0-6); % Immature Granulocytes 0.3 % (0-0.5); % Lymphocytes 10.1 % (20.5-51.1); % Monocytes 12.5 % (1.7-9.3); % Neutrophils 76.1 % (42.2-75.2); Absolute Eosinophils 0.1 10^3/uL (0-0.7); Absolute Monocytes 1.2 10^3/uL (0.1-0.6); Absolute Neutrophils 7.5 10^3/uL (1.4-6.5); Hematocrit 35.4 % (37.0-47.0); Hemoglobin 12.1 g/dL (12.0-16.0); Mean Corp Hgb Conc. 34.2 g/dL (33.0-37.0); Mean Corpuscular Hgb 26.9 pg (27.0-31.0); Mean Corpuscular Volume 78.7 fL (81.0-99.0); Nucleated Red Blood Cells % 0 %; Platelet Count 206 10^3/uL (130-400); Red Cell Dist. Width 15.6 % (11.5-14.5); White Blood Cell Count 9.9 10^3/uL (4.8-10.8)
[2024-08-31 08:23] LABS: Blood Urea Nitrogen 14 mg/dl (7-17); Calcium 9.3 mg/dl (8.4-10.2); Carbon Dioxide 27 mmol/L (22-30); Chloride 100 mmol/L (98-107); Estimated Creatinine Clearance 108 ml/min; Glucose 109 mg/dl (70-99); Potassium 4.3 mmol/L (3.5-5.1); Sodium 135 mmol/L (135-145); eGFR > 60.00
[2024-08-31 08:34] LABS: Procalcitonin < 0.05 ng/ml (0.0-0.25)
[2024-08-31] MEDS: ADVAIR HFA 230/21 MCG INHALER 2 PUFF INH ×2 (08:39→19:51)
[2024-08-31] MEDS: VIBRAMYCIN 100 MG PO ×2 (09:24→21:39)
[2024-08-31] MEDS: GLUCOPHAGE XR EXTENDED RELEASE 500 MG PO ×2 (09:24→17:34)
[2024-08-31] MEDS: LEXAPRO 10 MG PO (09:25)
[2024-08-31] MEDS: MUCINEX 1200 MG PO ×2 (09:25→21:40)
[2024-08-31] MEDS: CRESTOR 20 MG PO (09:25)
[2024-08-31] MEDS: DELTASONE 40 MG PO (09:25)
[2024-08-31] MEDS: PROTONIX 40 MG PO (09:26)
[2024-08-31] MEDS: DECADRON 4 MG IV (14:52)
[2024-08-31 15:35] VITALS: BP 117/76
--- NOTE | 2024-08-31 15:59 | W.PN.HOSP.TC ---
Today's Communication/Plan
-
Continue antibiotic
Assessment / Plan
Assessment / Plan
Impression:
Patient is a pleasant 68 years old female with history of asthma, hypertension, bipolar disorder, admitted overnight with community-acquired pneumonia started on IV antibiotic, breathing treatment, IV steroid.
Assessment/plan:
Severe sepsis with acute organ dysfunction
Patient meets sepsis criteria on admission
Heart rate 114
Respiratory rate 24
Source of infection is pneumonia
Acute organ dysfunction in form of acute respiratory failure
IV antibiotic in form of Rocephin/doxycycline
Negative for Respiratory Syncytial Virus.
Sputum culture.
Acute hypoxic respiratory failure secondary to pneumonia.
Continue to wean oxygen.
Ambulatory pulse ox for discharge
Anxiety/depression.
Continue Lexapro/nortriptyline
Documented history of diabetes mellitus but Seems to be well-controlled with recent hemoglobin A1c 5.3 on April
Continue metformin.
Insulin sliding scale while on steroid
CODE STATUS: Full code
DVT prophylaxis: Lovenox
Diet: Low-cholesterol diet
Anticipated Discharge: > 48 hours
Subjective/Interval History
-
Date of Service: August 31, 2024
Patient admitted overnight with coughing, sputum production, shortness of breath, wheezing.
Prednisone switched to IV dexamethasone.
Ordered p.o. DuoNebs as needed and [id number].
Patient felt better after breathing treatment
Objective Data
-
Labs:
Laboratory Results
08/31/24
07:35
WBC 9.9
Hgb 12.1
Hct 35.4 L
Plt Count 206
Sodium 135
Potassium 4.3
Chloride 100
Carbon Dioxide 27
BUN 14
Creatinine 0.6
Glucose 109 H
Calcium 9.3
Vital Signs:
Vital Signs
Temp Pulse Resp BP Pulse Ox
98.3 F 99 22 117/76 96
08/31/24 15:35 08/31/24 15:35 08/31/24 15:35 08/31/24 15:35 08/31/24 15:35
I&O
08/30/24 08/31/24 09/01/24
06:59 06:59 06:59
Intake Total 200 / 200
Balance 200 / 200
Physical Exam
-
General: Well Developed, Well Nourished, No Apparent Distress and Comfortable
HEENT: Normocephalic, Atraumatic, Moist Mucous Membranes, No Ptosis, PERRLA and Nose Appears Normal
Respiratory: Wheezes, Rales, Rhonchi, Crackles and Non Labored Respirations
Cardiac: Regular Rhythm and S1/S2
Breast: Deferred by me
GI: Soft, Nontender, Nondistended and Normal Bowel Sounds
Genito-urinary: No Costovertebral Tender
Musculoskeletal: No Clubbing, No Cyanosis and No Edema
Skin: Warm
Neuro: Awake, Alert, Oriented, AO x 3 and No Motor Deficits
Psych: Calm
--- NOTE | 2024-08-31 16:38 | CM ---
Alert awake oriented patient who lives alone in a condo with 1 step to enter..She is independent in driving and activates of daily living.She has no adaptive devices.She is on new Oxygen here.
Had [facility] in past . No SNF hx
Pharmacy [facility]
PCP Dr Mijares
PLAN Home with no needs Watch for new Oxygen
[2024-08-31] MEDS: LOVENOX 40 MG SC (17:34)
[2024-08-31] MEDS: ROCEPHIN 1000 MG IV (17:35)
[2024-08-31] MEDS: STERILE WATER FOR INJECTION 10 ML IV (17:35)
[2024-08-31 23:46] VITALS: BP 100/51
[2024-09-01] MEDS: DECADRON 4 MG IV ×2 (02:08→13:58)
[2024-09-01] MEDS: DUONEB 3 ML INH ×5 (02:43→19:46)
[2024-09-01 06:00] VITALS: BMI 40.4
[2024-09-01 07:06] LABS: Hematocrit 33.5 % (37.0-47.0); Mean Corp Hgb Conc. 32.8 g/dL (33.0-37.0); Mean Corpuscular Hgb 26.4 pg (27.0-31.0); Mean Corpuscular Volume 80.3 fL (81.0-99.0); Mean Platelet Volume 9.3 fL (7.4-10.4); Platelet Count 259 10^3/uL (130-400); Red Blood Cell Count 4.17 10^6/uL (4.20-5.40); Red Cell Dist. Width 15.3 % (11.5-14.5); White Blood Cell Count 8.8 10^3/uL (4.8-10.8)
[2024-09-01 07:34] LABS: Blood Urea Nitrogen 16 mg/dl (7-17); Calcium 9.5 mg/dl (8.4-10.2); Carbon Dioxide 25 mmol/L (22-30); Chloride 100 mmol/L (98-107); Estimated Creatinine Clearance 107 ml/min; Glucose 119 mg/dl (70-99); Potassium 4.5 mmol/L (3.5-5.1); Sodium 136 mmol/L (135-145); eGFR > 60.00
[2024-09-01 07:54] VITALS: BP 110/51
[2024-09-01] MEDS: ADVAIR HFA 230/21 MCG INHALER 2 PUFF INH ×2 (08:29→19:46)
[2024-09-01] MEDS: LEXAPRO 10 MG PO (09:10)
[2024-09-01] MEDS: VIBRAMYCIN 100 MG PO ×2 (09:10→20:17)
[2024-09-01] MEDS: MYSOLINE 50 MG PO ×2 (09:11→20:17)
[2024-09-01] MEDS: CRESTOR 20 MG PO (09:11)
[2024-09-01] MEDS: GLUCOPHAGE XR EXTENDED RELEASE 500 MG PO ×2 (09:11→17:16)
[2024-09-01] MEDS: PROTONIX 40 MG PO (09:11)
[2024-09-01] MEDS: MUCINEX 1200 MG PO ×2 (09:11→20:17)
[2024-09-01] MEDS: NON-FORMULARY ITEM 1 UNIT PO (09:12)
[2024-09-01] MEDS: SENOKOT-S 1 TABLET PO (10:57)
[2024-09-01 11:29] LABS: COVID-19 Antigen Negative (Negative)
[2024-09-01 14:08] VITALS: BP 101/70
--- NOTE | 2024-09-01 14:31 | W.PN.HOSP.TC ---
Today's Communication/Plan
-
Assessment / Plan
Assessment / Plan
No acute distress
Moist mucous membrane
No JVD
Wheezing throughout all lung renee
Regular rate rhythm S1-S2
Soft nontender nondistended
No peripheral pitting edema
Severe sepsis with acute organ dysfunction
Source of infection is pneumonia
Incentive spirometer and Acapella
Rocephin doxycycline
Negative for Respiratory Syncytial Virus. Will check COVID flu
Sputum culture.
Acute hypoxic respiratory failure secondary to pneumonia.
Continue to wean oxygen.
Ambulatory pulse ox for discharge
Anxiety/depression.
Continue Lexapro/nortriptyline
Documented history of diabetes mellitus but Seems to be well-controlled with recent hemoglobin A1c 5.3 on April
Continue metformin.
Insulin sliding scale while on steroid
CODE STATUS: Full code
DVT prophylaxis: Lovenox
Diet: Low-cholesterol diet
Anticipated Discharge: 24 - 48 hours
Subjective/Interval History
-
Date of Service: September 01, 2024
Seen and examined. No new complaints. No acute overnight events.
States overnight had a tactile wheezing coughing. Nebulizer treatments helped
Objective Data
-
Labs:
Laboratory Results
09/01/24
06:28
WBC 8.8
Hgb 11.0 L
Hct 33.5 L
Plt Count 259 D
Sodium 136
Potassium 4.5
Chloride 100
Carbon Dioxide 25
BUN 16
Creatinine 0.6
Glucose 119 H
Calcium 9.5
Vital Signs:
Vital Signs
Temp Pulse Resp BP Pulse Ox
98.7 F 82 16 101/70 94
09/01/24 14:08 09/01/24 14:08 09/01/24 14:08 09/01/24 14:08 09/01/24 14:08
I&O
08/31/24 09/01/24 09/02/24
06:59 06:59 06:59
Intake Total 200 / 200 1460 / 1460
Balance 200 / 200 1460 / 1460
[2024-09-01 16:15] VITALS: BP 142/68
[2024-09-01] MEDS: ROCEPHIN 1000 MG IV (17:16)
[2024-09-01] MEDS: LOVENOX 40 MG SC (17:16)
[2024-09-01] MEDS: STERILE WATER FOR INJECTION 10 ML IV (17:17)
[2024-09-01] MEDS: MIRALAX 17 GRAMS PO (18:08)
[2024-09-01] MEDS: PEPCID 40 MG PO (21:19)
[2024-09-01] MEDS: PAMELOR 10 MG PO (21:20)
[2024-09-01 23:41] VITALS: BP 115/71
[2024-09-02] MEDS: DUONEB 3 ML INH ×5 (00:15→20:16)
[2024-09-02] MEDS: DECADRON 4 MG IV ×2 (01:04→14:46)
[2024-09-02 06:00] VITALS: BMI 40.6
[2024-09-02 06:00] LABS: Hematocrit 34.9 % (37.0-47.0); Hemoglobin 11.5 g/dL (12.0-16.0); Mean Corpuscular Hgb 26.7 pg (27.0-31.0); Mean Corpuscular Volume 81.2 fL (81.0-99.0); Mean Platelet Volume 9.2 fL (7.4-10.4); Platelet Count 294 10^3/uL (130-400); Red Cell Dist. Width 15.3 % (11.5-14.5); White Blood Cell Count 7.1 10^3/uL (4.8-10.8)
[2024-09-02 06:23] LABS: Blood Urea Nitrogen 16 mg/dl (7-17); Calcium 9.9 mg/dl (8.4-10.2); Carbon Dioxide 25 mmol/L (22-30); Chloride 100 mmol/L (98-107); Estimated Creatinine Clearance 92 ml/min; Glucose 109 mg/dl (70-99); Potassium 4.6 mmol/L (3.5-5.1); Sodium 137 mmol/L (135-145); eGFR > 60.00
[2024-09-02] MEDS: ADVAIR HFA 230/21 MCG INHALER 2 PUFF INH (07:33)
[2024-09-02 09:07] VITALS: BP 118/68
[2024-09-02] MEDS: CRESTOR 20 MG PO (10:06)
[2024-09-02] MEDS: MYSOLINE 50 MG PO ×2 (10:06→19:43)
[2024-09-02] MEDS: LEXAPRO 10 MG PO (10:07)
[2024-09-02] MEDS: NON-FORMULARY ITEM 1 UNIT PO (10:07)
[2024-09-02] MEDS: GLUCOPHAGE XR EXTENDED RELEASE 500 MG PO ×2 (10:07→17:09)
[2024-09-02] MEDS: VIBRAMYCIN 100 MG PO ×2 (10:07→19:43)
[2024-09-02] MEDS: MUCINEX 1200 MG PO ×2 (10:07→19:43)
[2024-09-02] MEDS: PROTONIX 40 MG PO (10:07)
[2024-09-02] MEDS: SENOKOT-S 1 TABLET PO (10:15)
--- NOTE | 2024-09-02 14:37 | CON.PUL ---
Consultation
Consultation Request
Date/Time Consultation Requested: 09/02/2024
Date/Time Consultation Performed: 09/02/2024
Requesting Provider: Dr. Galindo
Performing Provider: Dr. Vasu Roberts
Reason for Consultation: Community-acquired pneumonia/shortness of breath
Medical History
-
History of Present Illness:
68-year-old woman with past medical history significant for asthma, fibromyalgia, hypertension, hypercholesterolemia, bipolar disorder prior history of DVT came to the emergency room complaining of cough and shortness of breath. Symptoms started
around August 23 and have continued to worsen. She was given prednisone and nebulizers without improvement.
Chest x-ray demonstrated abnormality suggestive of pneumonia.
She was placed on antibiotics for possible community-acquired pneumonia.
Reports with coughing with difficulty expectorating
Denies fevers or chills
Denies abdominal pain nausea or vomiting
Initially with ear pain negative resolved
Denies any rash
Main issue is her coughing and chest congestion.
-
Follows up with Dr. Galindo from asthma and allergy. Reports having prednisone in May for a bronchitis as well.
She has never been intubated for her asthma
Denies frequent emergency room visits
Usually on Advair and albuterol as needed
Past Medical History
Past Medical History: Other (See assessment and plan)
Social History
Tobacco: Non-smoker
Alcohol: None
Family History
Family History: Reviewed & Not Pertinent
Allergies / Home Medications
Allergies
Allergy/AdvReac Type Severity Reaction Status Date / Time
duloxetine Allergy Unknown Rash Verified 08/30/24 12:58
Iodinated Contrast Media Allergy Unknown Rash - Verified 08/30/24 12:58
[Iodinated Contrast- Oral Only with
and IV Dye] CT scan dye
tramadol [From Ultram] Allergy Unknown 'throat Verified 08/30/24 12:58
closes'
ciprofloxacin Allergy Rash Verified 08/30/24 12:58
cyclobenzaprine HCl Allergy hand Verified 08/30/24 12:58
[From Flexeril] tremors/facial
tremors
duloxetine HCl Allergy severe Verified 08/30/24 12:58
[From Cymbalta] hand and
facial
tremors
iodine Allergy Unknown Verified 08/30/24 12:58
ketorolac Allergy throat Verified 08/30/24 12:58
closes up
morphine Allergy Pharmacy Verified 08/30/24 12:58
to Review
oxycodone Allergy 'unresponsive Verified 08/30/24 12:58
for 26 hrs
after knee
surgery'
oxycodone HCl Allergy 'unresponsive Verified 08/30/24 12:58
[From OxyContin] for 26
hrs. after
knee
sirgery'
tromethamine Allergy Anaphylaxis Verified 08/30/24 12:58
NSAIDS (Non-Steroidal AdvReac Unknown Nausea / Verified 08/30/24 12:58
Anti-Inflamma Vomiting
pollen,dust Allergy itchy Uncoded 08/30/24 12:58
eyes,
runny nose
Home Medications
�Medication �Instructions �Recorded �Confirmed �Last Taken �Type
fluticasone propionate 50 2 spray intranasal DAILYPRN PRN 03/30/16 08/30/24 01/20/21 20:00 History
mcg/actuation nasal allergies
spray,suspension
iyujwjih-kbwe-bdra 8 mg-folic 400 1 tab PO DAILY Supplement 03/30/16 08/30/24 01/10/24 History
mcg-K 50 mcg-lutein 300 mcg tablet
(Centrum Silver Women)
albuterol sulfate 90 mcg/actuation 2 puff inhalation R Q6HPRN PRN 05/03/18 08/30/24 09/06/23 07:00 History
aerosol inhaler asthma
escitalopram oxalate 10 mg tablet 10 mg PO DAILY depression/anxiety 05/03/18 08/30/24 01/10/24 History
metformin 500 mg tablet,extended 500 mg PO BID Diabetes 05/03/18 08/30/24 01/10/24 History
release 24 hr
nortriptyline 10 mg capsule 10 mg PO HS depression/sleep 05/03/18 08/30/24 01/09/24 History
peg 400-propylene glycol (PF) 0.4 1 drp BOTH EYES TID dry eyes 05/03/18 08/30/24 01/10/24 History
%-0.3 % eye drops in a dropperette
(Systane Ultra (PF))
pumpkin seed extract-soy germ 300 1 cap PO DAILYPRN PRN INCREASE 05/23/18 08/30/24 01/04/24 History
mg capsule (Azo Bladder Control) URINE FREQUENCY ##0
primidone 50 mg tablet 50 mg PO BID Neurological Condition 03/18/20 08/30/24 01/10/24 History
simethicone 80 mg chewable tablet 160 mg PO DAILYPRN PRN gas pains 03/18/20 08/30/24 01/07/24 History
cholecalciferol (vitamin D3) 50 50 mcg PO DAILY Supplement 08/25/23 08/30/24 01/10/24 History
mcg (2,000 unit) tablet (Vitamin
D3)
estradiol 0.01% (0.1 mg/gram) 1 g vaginal DAILYPRN PRN dryness 08/25/23 08/30/24 01/07/24 History
vaginal cream (Estrace)
fexofenadine 180 mg tablet 180 mg PO DAILY allergies 08/25/23 08/30/24 09/06/23 07:00 History
rosuvastatin 20 mg tablet 20 mg PO DAILY High Cholesterol 08/25/23 08/30/24 01/10/24 History
topiramate 50 mg tablet (Topamax) 100 mg PO Q48H@1800 bipolar 08/25/23 08/30/24 01/10/24 History
disorder
Lactobac no.2-Bifidobac no.1-S. 1 cap PO DAILY probiotic 01/11/24 08/30/24 01/10/24 History
thermo 112.5 billion cell capsule
(Visbiome)
rizatriptan 10 mg tablet 10 mg PO DAILYPRN PRN migraine 01/11/24 08/30/24 01/10/24 History
topiramate 50 mg tablet (Topamax) 150 mg PO Q48H@1800 bipolar 01/11/24 08/30/24 01/09/24 History
disorder
azelastine 137 mcg (0.1 %) nasal 2 spray intranasal BID allergies 08/30/24 08/30/24 Unknown History
spray
esomeprazole magnesium 40 mg 40 mg PO DAILY Gastrointestinal 08/30/24 08/30/24 Unknown History
capsule,delayed release Issue
famotidine 40 mg tablet 40 mg PO HS Gastrointestinal Issue 08/30/24 08/30/24 Unknown History
fluticasone propionate 230 2 puff inhalation R BID 08/30/24 08/30/24 Unknown History
mcg-salmeterol 21 mcg/actuation Lung/Breathing Issues
HFA inhaler (Advair HFA)
ipratropium 0.5 mg-albuterol 3 mg 3 ml inhalation R Q4HPRN PRN sob 08/30/24 08/30/24 Unknown History
(2.5 mg base)/3 mL nebulization
soln
prednisone 20 mg tablet 40 mg PO DAILY Anti-Inflammatory 08/30/24 08/30/24 Unknown History
fexofenadine 180 mg tablet 180 mg PO Q24H 09/01/24 09/01/24 08/30/24 08:00 History
(Amisha Allergy)
Review of Systems
-
History Source: Patient
All other systems: Negative unless noted
Vitals / Labs / Diagnostic Testing
Vital Signs
Temp Pulse Resp BP Pulse Ox
97.7 F 88 20 118/68 95
09/02/24 09:07 09/02/24 11:28 09/02/24 11:28 09/02/24 09:07 09/02/24 11:28
Lab Data
09/02/24 05:14
09/02/24 05:14
Microbiology
09/01/24 09:28 Nasal Swab Influenza Types A & B (GWENDOLYN) - Final
Negative for Influenza A & B, NAAT
Negative results must be combined with clinical observations
and patient history.
Nucleic Acid Amplification test (NAAT)performed on the
[employer] platform.
08/30/24 13:08 Nasal Swab Respiratory Syncytial Virus Culture - Final
Negative for Respiratory Syncytial Virus.
A false negative result may be obtained with a specimen
collected early in the acute phase. If symptoms persist, a
new specimen should be tested.
Diagnostic Testing:
Physical Exam
-
HEENT: Normocephalic
Cardiovascular: S1/S2
Respiratory: Wheeze and Rhonchi (Bilaterally)
GI: Soft and Non Distended
Neurology: Awake, Oriented, AO x 3 and No Motor Deficits
Skin: Warm
General: Comfortable and Other (Able to speak in full sentences)
Assessment
-
68-year-old woman with history of asthma who follows up with allergy-Dr. Galindo, admitted to the hospital with symptoms since August 23, symptoms progressed despite prednisone. Including coughing, difficulty expectorating and shortness of breath.
Found to be bronchospastic. Possible left lower lobe infiltrate. We were consulted on 09/02/2024 for evaluation.
Cough/shortness of breath: Pneumonia versus bronchitis
Chest x-ray: Possible left lower lobe abnormality atelectasis versus pneumonia
No leukocytosis
Negative for RSV acute hypoxemic respiratory insufficiency
Performed and negative
Negative COVID
Asthma: On fluticasone/salmeterol-possible mild exacerbation
Conditions present prior admission
Asthma
Rhinitis
Anxiety
Type 2 diabetes-controlled
Multiple medication allergies
Fibromyalgia
Hypertension
Hypercholesterolemia
Bipolar disorder
History of superficial thrombosis and possible DVT in the past
IBS
Migraine
Plan:
On presentation chest x-ray showed possible left lower lobe abnormality, and had hypoxemia and was short of breath.
Coarse breath sounds bilaterally and mild bronchospastic on exam.
Treated for Community acquired pneumonia/tracheobronchitis
CT chest performed 09/02/2024: To my view showed bibasilar subsegmental-hypoventilatory atelectasis. Cannot rule out minimal infiltrate in the right lower lobe. Will wait for official report of CAT scan.
Patient without leukocytosis
Afebrile
Negative Pro-Perico
I favor tracheobronchitis: Okay to continue antibiotics and complete total of 5 days of antibiotics.
Okay to transition to oral antibiotics in the next 24 hours
Can consider prolonged azithromycin course 250 mg every other day for anti-inflammatory properties with until symptoms clear.
-
In regards to asthma: With acute exacerbation due to bronchitis.
Continue IV dexamethasone without change for today
In the outpatient setting on fluticasone/salmeterol-hold for now
Continue mucolytics
Incentive spirometry/Acapella device to aid with secretion clearance.
VEST therapy BID cont.
Continue DuoNebs 4 times a day-while in the hospital.
Will add Pulmicort nebulized
-
Currently 95% on room air.
-
Will continue to follow.
-
[facility] records reviewed seen last time by our office by Dr. Villaseñor 02/2023, at that time she was doing well. No additional inhalers recommended. Her pulmonary function testing was normal. Plan was to follow-up in a year. Patient follows up with
Mateo from asthma and allergies to treat her asthma usually on Advair and as needed albuterol.
--- NOTE | 2024-09-02 16:21 | W.PN.HOSP.TC ---
Today's Communication/Plan
-
Continue IV antibiotics for treatment of CAP
Continue IV steroids for treatment of acute bronchitis in the setting of asthma exacerbation
Continue nebulizer treatments
Follow-up on CT chest report
Follow-up on pulmonary recommendation
Continue incentive spirometer and Acapella use
Assessment / Plan
Assessment / Plan
No acute distress
Moist mucous membrane
No JVD
Wheezing with rhonchi throughout all lung renee
Regular rate rhythm S1-S2
Soft nontender nondistended
No peripheral pitting edema
Severe sepsis with acute organ dysfunction
Source of infection is pneumonia
Incentive spirometer and Acapella
Rocephin doxycycline
Negative for Respiratory Syncytial Virus. Negative COVID flu
Sputum culture.
Acute hypoxic respiratory failure secondary to pneumonia and asthma exacerbation with bronchitis.
Continue to wean oxygen.
Ambulatory pulse ox for discharge
IV steroid
CT chest obtained, report pending
Continue vest therapy twice daily
Pulmonary consulted
Anxiety/depression.
Continue Lexapro/nortriptyline
Documented history of diabetes mellitus but Seems to be well-controlled with recent hemoglobin A1c 5.3 on April
Continue metformin.
Insulin sliding scale while on steroid
CODE STATUS: Full code
DVT prophylaxis: Lovenox
Diet: Low-cholesterol diet
Anticipated Discharge: Within 24 hours
Subjective/Interval History
-
Date of Service: September 02, 2024
Seen and examined. No new complaints. No acute overnight events.
States that shortness of breath is not improving. Still feels very junky and unable to clear
States that she wants to be seen by pulmonary
Objective Data
-
Labs:
Laboratory Results
09/02/24
05:14
WBC 7.1
Hgb 11.5 L
Hct 34.9 L
Plt Count 294
Sodium 137
Potassium 4.6
Chloride 100
Carbon Dioxide 25
BUN 16
Creatinine 0.7
Glucose 109 H
Calcium 9.9
Vital Signs:
Vital Signs
Temp Pulse Resp BP Pulse Ox
97.7 F 90 18 118/68 94
09/02/24 09:07 09/02/24 16:17 09/02/24 16:17 09/02/24 09:07 09/02/24 16:17
I&O
09/01/24 09/02/24 09/03/24
06:59 06:59 06:59
Intake Total 1460 / 1460 2640 / 2640
Balance 1460 / 1460 2640 / 2640
[2024-09-02 16:46] VITALS: BP 144/83
[2024-09-02] MEDS: LOVENOX 40 MG SC (17:08)
[2024-09-02] MEDS: STERILE WATER FOR INJECTION 10 ML IV (17:09)
[2024-09-02] MEDS: ROCEPHIN 1000 MG IV (17:09)
[2024-09-02] MEDS: MIRALAX 17 GRAMS PO (17:09)
[2024-09-02] MEDS: PULMICORT 0.5 MG INH (20:16)
[2024-09-02] MEDS: PEPCID 40 MG PO (21:24)
[2024-09-02] MEDS: PAMELOR 10 MG PO (21:24)
[2024-09-02 23:22] VITALS: BP 128/72
[2024-09-03] MEDS: DECADRON 4 MG IV ×2 (01:03→14:34)
[2024-09-03 06:00] VITALS: BMI 40.6
[2024-09-03 06:23] LABS: Hematocrit 34.4 % (37.0-47.0); Hemoglobin 11.1 g/dL (12.0-16.0); Mean Corp Hgb Conc. 32.3 g/dL (33.0-37.0); Mean Corpuscular Hgb 26.4 pg (27.0-31.0); Mean Corpuscular Volume 81.7 fL (81.0-99.0); Mean Platelet Volume 9.2 fL (7.4-10.4); Platelet Count 326 10^3/uL (130-400); Red Blood Cell Count 4.21 10^6/uL (4.20-5.40); Red Cell Dist. Width 15.1 % (11.5-14.5); White Blood Cell Count 7.1 10^3/uL (4.8-10.8)
[2024-09-03 06:51] LABS: Blood Urea Nitrogen 17 mg/dl (7-17); Calcium 9.4 mg/dl (8.4-10.2); Carbon Dioxide 25 mmol/L (22-30); Chloride 100 mmol/L (98-107); Estimated Creatinine Clearance 92 ml/min; Glucose 104 mg/dl (70-99); Potassium 4.6 mmol/L (3.5-5.1); Sodium 138 mmol/L (135-145); eGFR > 60.00
[2024-09-03 07:10] VITALS: BP 142/80
[2024-09-03] MEDS: PULMICORT 0.5 MG INH ×2 (08:04→20:12)
[2024-09-03] MEDS: DUONEB 3 ML INH ×4 (08:10→20:12)
--- NOTE | 2024-09-03 08:18 | W.PN.HOSP.TC ---
Today's Communication/Plan
-
Continue Antibiotic treatment. Continue giving medications for constipation as needed. Monitor for any worsening breathing.
Assessment / Plan
Assessment / Plan
Assessment:
58 year old female with a history of Asthma, Hypertension, Bipolar Disorder, DVT was seen in the [place] [facility] due to worsening cough and shortness of breath. Patient was diagnosed with community acquired pneumonia and was started on IV antibiotic
treatment, breathing treatment and IV steroids. Patient had severe sepsis upon admission and her symptoms improved upon treatment.
Plan:
#Severe sepsis with acute organ dysfunction
-Source of infection due to pneumonia
-Incentive spirometer and Acapella
-Rocephin and PO doxycycline
-Switch to only PO meds
-Negative for Respiratory Syncytial Virus. Negative COVID flu
-Sputum culture.
#Acute hypoxic respiratory failure secondary to pneumonia and asthma exacerbation with bronchitis.
-Weaned to room air
-Ambulatory pulse ox for discharge
CT Chest (09/02/2024)-
1. Mild to moderate subpleural airspace consolidation in the basilar segments of the right lower lobe which appears new from 02/15/2023. Diagnostic possibilities are (1) mild right lower lobe pneumonia or (2) subpleural subsegmental atelectasis.
2. Mild scarring in the left lower lobe.
3. Moderately decreased bilateral lung volumes.
4. Moderately exaggerated lower thoracic kyphosis.
5. Moderate multilevel thoracic discogenic degenerative disease.
-Recommended 5 total days of Abx
-IV steroid
-Continue vest therapy twice daily
-Pulmonary consulted, input appreciated
#Constipation
-Continue Senna/Colace
-Continue Miralax
-Suppository as needed
#Anxiety/depression.
Continue Lexapro/nortriptyline
#Documented history of diabetes mellitus but Seems to be well-controlled with recent hemoglobin A1c 5.3 on April
Continue metformin.
Insulin sliding scale while on steroid
CODE STATUS: Full code
DVT prophylaxis: Lovenox
Diet: Low-cholesterol diet
Anticipated Discharge: 24 - 48 hours
Subjective/Interval History
-
Date of Service: September 03, 2024
Patient says that she is feeling much better today than before. Says her cough has improved but she is feeling a bit constipated.
Objective Data
-
Labs:
Laboratory Results
09/03/24
05:14
WBC 7.1
Hgb 11.1 L
Hct 34.4 L
Plt Count 326
Sodium 138
Potassium 4.6
Chloride 100
Carbon Dioxide 25
BUN 17
Creatinine 0.7
Glucose 104 H
Calcium 9.4
Vital Signs:
Vital Signs
Temp Pulse Resp BP Pulse Ox
97.8 F 80 18 142/80 93
09/03/24 07:10 09/03/24 08:06 09/03/24 08:06 09/03/24 07:10 09/03/24 08:06
I&O
09/02/24 09/03/24 09/04/24
06:59 06:59 06:59
Intake Total 2640 / 2640 2160 / 2160
Balance 2640 / 2640 2160 / 2160
Review of Systems
-
History Source: Patient
Constitutional: Denies Weight Loss, No Appetite, Fatigue or Sleep Disturbance
EENT: Reports No Symptoms Reported
Respiratory: Reports Cough and Wheezing; Denies Trouble Breathing
Cardiac: Denies Chest Pain or Palpitations
Abdomen/GI: Reports Constipated; Denies Abdominal Pain, Nausea, Vomiting or Diarrhea
Genitourinary: Reports No Symptoms
Musculoskeletal: Reports No Symptoms
Skin: Reports No Symptoms
Neuro: Reports No Symptoms
Endocrine: Reports No Symptoms
Hematologic / Lymphatic: Reports No Symptoms
Allergy / Immunology: Reports No Symptoms
Physical Exam
-
General: Well Developed, Well Nourished, No Apparent Distress and Comfortable
HEENT: Normocephalic, Atraumatic and Moist Mucous Membranes
Respiratory: Wheezes and Non Labored Respirations
Cardiac: Regular Rhythm and S1/S2
GI: Soft, Nontender and Distended
Musculoskeletal: No Clubbing, No Cyanosis and No Edema
Skin: Warm and Dry
Neuro: Awake, Alert, Oriented and AO x 3
Psych: Calm
Data Reviewed
-
CT Scan: Report Reviewed by me, Discussed with Physician, Discussed with Nurse and Discussed with Patient
Labs: Labs Reviewed by me, Discussed with Physician, Discussed with Nurse and Discussed with Patient
[2024-09-03] MEDS: MUCINEX 1200 MG PO ×2 (10:59→20:26)
[2024-09-03] MEDS: LEXAPRO 10 MG PO (10:59)
[2024-09-03] MEDS: PROTONIX 40 MG PO (10:59)
[2024-09-03] MEDS: CRESTOR 20 MG PO (10:59)
[2024-09-03] MEDS: VIBRAMYCIN 100 MG PO ×2 (10:59→20:26)
[2024-09-03] MEDS: MYSOLINE 50 MG PO ×2 (11:00→20:26)
[2024-09-03] MEDS: GLUCOPHAGE XR EXTENDED RELEASE 500 MG PO ×2 (11:00→17:33)
--- NOTE | 2024-09-03 11:13 | W.PN.PUL.V3 ---
Today's Communication / Plan
-
.
Steroids.
Antibiotics.
Nebulizers.
Wean oxygen.
Increase activity
Assessment
-
68-year-old woman with history of asthma who follows up with allergy-Dr. Galindo, admitted to the hospital with symptoms since August 23, symptoms progressed despite prednisone. Including coughing, difficulty expectorating and shortness of breath.
Found to be bronchospastic. Possible left lower lobe infiltrate. We were consulted on 09/02/2024 for evaluation.
Cough/shortness of breath: Pneumonia versus bronchitis
Chest x-ray: Possible left lower lobe abnormality atelectasis versus pneumonia
No leukocytosis
Negative for RSV acute hypoxemic respiratory insufficiency
Performed and negative
Negative COVID
Asthma: On fluticasone/salmeterol- With exacerbation
Anemia-normocytic
Conditions present prior admission:
Asthma
Rhinitis
Anxiety
Type 2 diabetes-controlled
Multiple medication allergies
Fibromyalgia
Hypertension
Hypercholesterolemia
Bipolar disorder
History of superficial thrombosis and possible DVT in the past
IBS
Migraine
Plan:
Respiratory status still somewhat tenuous with ongoing wheezing and coughing.
Wean supplemental oxygen.
Assessment discharge supplemental she needs prior to discharge.
Aspiration precautions.
Nebulizers-Pulmicort and DuoNeb nebs
Steroids-Decadron 4 mg IV every 12 hours
Mucolytic's.
Incentive spirometry.
The vest therapy twice daily
Check cultures.
Empiric antibiotics-Doxycycline and ceftriaxone
Considered prolonged azithromycin for anti-inflammatory effects
DVT prophylaxis-on Lovenox.
GI prophylaxis-on pantoprazole -and Pepcid
Nutrition
Mobilization/ambulation
[facility] records reviewed seen last time by our office by Dr. Villaseñor 02/2023, at that time she was doing well- No additional inhalers recommended-Her pulmonary function testing was normal-Plan was to follow-up in a year.
The patient also follows up with Dr. Galindo from asthma and allergies to treat her asthma usually on Advair and as needed albuterol.
Subjective Data
-
Date of Service:
Date of Service: September 03, 2024
Chief Complaint: Pulmonary Follow Up and Dyspnea Follow Up
Subjective:
feels better with Pulmicort nebulizers, still with wheezing, minimal cough, some dyspnea on exertion, no chest pain or abdominal pain
Review of Systems
General: Other ( per HPI)
Objective Data
Data Reviewed
Vital Signs / I&O:
Vital Signs
Temp Pulse Resp BP Pulse Ox
97.8 F 108 20 142/80 92
09/03/24 07:10 09/03/24 10:56 09/03/24 10:56 09/03/24 07:10 09/03/24 10:56
Intake and Output
09/02/24 09/03/24 09/04/24
06:59 06:59 06:59
Intake Total 2640 / 2640 2160 / 2160
Balance 2640 / 2640 2160 / 2160
SaO2: 92
Nasal Cannula flow liters per minute: 3
Physical Exam
General: Respiratory Distress (n) and Comfortable
HEENT: Anicteric and Moist Mucous Membranes
Cardiovascular: Regular Rhythm
Respiratory: Wheeze ( expiratory), Crackles ( rare basilar), Rhonchi ( expiratory), Non-Labored Respirations, Accessory Resp Muscle Use (n) and Stridor
GI: Soft, Non Distended and Non Tender
Neurology: Awake, Oriented and No Motor Deficits
Skin: Good Color, Cyanosis (n), Jaundice (n) and Rash (n)
Labs/Micro/Reports
Lab Data
09/03/24 05:14
09/03/24 05:14
Microbiology
09/01/24 09:28 Nasal Swab Influenza Types A & B (GWENDOLYN) - Final
Negative for Influenza A & B, NAAT
Negative results must be combined with clinical observations
and patient history.
Nucleic Acid Amplification test (NAAT)performed on the
[employer] platform.
[2024-09-03] MEDS: SENOKOT-S 1 TABLET PO (11:17)
[2024-09-03] MEDS: DULCOLAX 10 MG RECTAL ×2 (11:17→13:26)
[2024-09-03] MEDS: NON-FORMULARY ITEM 1 UNIT PO (11:19)
--- NOTE | 2024-09-03 11:32 | W.PN.UPDATE ---
Update Note
Progress Note Update
I saw and evaluated the patient. I reviewed the resident�s note and agree with findings and plan as documented in the resident�s note.
Patient's bronchospasm has improved since starting Pulmicort.
Gen: NAD, AAOx3.
Eyes: EOMI, PERRLA, no scleral icterus.
Neck: supple.
CV: RRR, +S1/S2, no m/r/g.
Resp: mild wheezes
Abd: +BS, soft, NT, ND
Skin: No rashes.
Neuro: CN 2-12 intact, non-focal.
Psych: Normal mood and affect.
CT chest:
1. Mild to moderate subpleural airspace consolidation in the basilar segments of the right lower lobe which appears new from 02/15/2023. Diagnostic possibilities are (1) mild right lower lobe pneumonia or (2) subpleural subsegmental atelectasis.
2. Mild scarring in the left lower lobe.
3. Moderately decreased bilateral lung volumes.
4. Moderately exaggerated lower thoracic kyphosis.
5. Moderate multilevel thoracic discogenic degenerative disease.
Severe sepsis acute acute hypoxemic respiratory failure due to PNA and acute asthma exac:
-RSV/COVID/Flu NEG
-cont Rocephin/doxycycline/Decadron
-cont pulmicort/duonebs
-pulm following
-saturating well on RA
Other problems:
Morbid obesity due to excess calorie
Anxiety/depression: cont Lexapro/nortriptyline
DM2: cont Metformin/SSI/accuchecks/diabetic diet
FULL/Lovenox
--- NOTE | 2024-09-03 14:39 | VNURNOTE ---
Home Health Liaison met with patient at bedside to discuss [facility] nurse/therapy, visits, schedule and homebound status. Patient is agreeable and understands that visits at home will be 2-3 x per week to assess and teach medical management. [facility]
brochure provided with contact information. Patient is aware that [facility] will contact them for start of care in 1-2 days after discharge from . [facility] referral completed in [facility].
[2024-09-03 15:10] VITALS: BP 162/95
--- NOTE | 2024-09-03 17:13 | CM ---
Spoke with pt in room. She was weaned off oxygen .
Offered Vn She requested [facility] . Brittany Espinoza liaison notified of referral for VN .
Pt said she will drive her self home.
PLAN Home with [facility]
[2024-09-03] MEDS: LOVENOX 40 MG SC (17:33)
[2024-09-03] MEDS: ROCEPHIN 1000 MG IV (17:34)
[2024-09-03] MEDS: STERILE WATER FOR INJECTION 10 ML IV (17:36)
[2024-09-03] MEDS: PAMELOR 10 MG PO (21:39)
[2024-09-03] MEDS: PEPCID 40 MG PO (21:39)
[2024-09-03 23:30] VITALS: BP 110/73
[2024-09-04] MEDS: DECADRON 4 MG IV ×2 (02:41→13:59)
[2024-09-04 05:50] LABS: Hematocrit 34.6 % (37.0-47.0); Hemoglobin 11.3 g/dL (12.0-16.0); Mean Corp Hgb Conc. 32.7 g/dL (33.0-37.0); Mean Corpuscular Hgb 26.3 pg (27.0-31.0); Mean Corpuscular Volume 80.7 fL (81.0-99.0); Mean Platelet Volume 9.1 fL (7.4-10.4); Platelet Count 336 10^3/uL (130-400); Red Blood Cell Count 4.29 10^6/uL (4.20-5.40); Red Cell Dist. Width 15.1 % (11.5-14.5); White Blood Cell Count 6.9 10^3/uL (4.8-10.8)
[2024-09-04 06:00] VITALS: BMI 40.7
[2024-09-04 06:08] LABS: Blood Urea Nitrogen 17 mg/dl (7-17); Calcium 9.4 mg/dl (8.4-10.2); Carbon Dioxide 25 mmol/L (22-30); Chloride 100 mmol/L (98-107); Estimated Creatinine Clearance 108 ml/min; Glucose 103 mg/dl (70-99); Sodium 137 mmol/L (135-145); eGFR > 60.00
[2024-09-04 06:14] LABS: Potassium 4.4 mmol/L (3.5-5.1)
[2024-09-04] MEDS: PULMICORT 0.5 MG INH ×2 (06:47→19:16)
[2024-09-04] MEDS: DUONEB 3 ML INH ×4 (06:47→19:16)
[2024-09-04 07:10] VITALS: BP 142/74
--- NOTE | 2024-09-04 08:10 | W.PN.HOSP.TC ---
Today's Communication/Plan
-
Continue antibiotic treatment, monitor for any changes in breathing.
Assessment / Plan
Assessment / Plan
Assessment:
58 year old female with a history of Asthma, Hypertension, Bipolar Disorder, DVT was seen in the [place] ER due to worsening cough and shortness of breath. Patient was diagnosed with community acquired pneumonia and was started on IV antibiotic
treatment, breathing treatment and IV steroids. Patient had severe sepsis upon admission and her symptoms improved upon treatment.
Plan:
#Severe sepsis with acute organ dysfunction
-Source of infection due to pneumonia
-Incentive spirometer and Acapella
-Rocephin and PO doxycycline (Day 4)
-Negative for Respiratory Syncytial Virus. Negative COVID flu
#Acute hypoxic respiratory failure secondary to pneumonia and asthma exacerbation with bronchitis.
-Weaned to room air
-Ambulatory pulse ox for discharge
-CT Chest (09/02/2024)-
1. Mild to moderate subpleural airspace consolidation in the basilar segments of the right lower lobe which appears new from
02/15/2023. Diagnostic possibilities are (1) mild right lower lobe pneumonia or (2) subpleural subsegmental atelectasis.
2. Mild scarring in the left lower lobe.
3. Moderately decreased bilateral lung volumes.
4. Moderately exaggerated lower thoracic kyphosis.
5. Moderate multilevel thoracic discogenic degenerative disease.
-Recommended 5 total days of Abx (On Day 4)
-Possibly Allergic Reacting to IV Rocephin, will consider alternatives if needed
-IV steroid
-Continue vest therapy twice daily
-Pulmonary consulted, input appreciated
-Currently on Room Air, saturating well
#Constipation
-Continue Senna/Colace
-Continue Miralax
-Suppository as needed
#Anxiety/depression.
Continue Lexapro/nortriptyline
#Well Controlled DM 2
-Continue metformin.
-Insulin sliding scale while on steroid
CODE STATUS: Full code
DVT prophylaxis: Lovenox
Diet: Low-cholesterol diet
Anticipated Discharge: Within 24 hours
Subjective/Interval History
-
Date of Service: September 04, 2024
Patient says she has been having a potential reaction to the Rocephin as her throat seems to tighten up after she receives the medication. Says her breathing has been much better with Pulmicort and would like to talk to the Pulmonologists today.
Objective Data
-
Labs:
Laboratory Results
09/04/24
05:15
WBC 6.9
Hgb 11.3 L
Hct 34.6 L
Plt Count 336
Sodium 137
Potassium 4.4
Chloride 100
Carbon Dioxide 25
BUN 17
Creatinine 0.6
Glucose 103 H
Calcium 9.4
Vital Signs:
Vital Signs
Temp Pulse Resp BP Pulse Ox
97.9 F 90 18 142/74 94
09/04/24 07:10 09/04/24 07:10 09/04/24 07:10 09/04/24 07:10 09/04/24 07:10
I&O
09/03/24 09/04/24 09/05/24
06:59 06:59 06:59
Intake Total 2160 / 2160 1500 / 1500
Balance 2160 / 2160 1500 / 1500
Review of Systems
-
History Source: Patient
Constitutional: Reports Fatigue; Denies No Appetite, Sleep Disturbance or Weakness
EENT: Reports No Symptoms Reported
Respiratory: Reports Cough, Trouble Breathing and Wheezing
Cardiac: Reports Palpitations; Denies Chest Pain
Abdomen/GI: Reports Constipated; Denies Abdominal Pain, Nausea, Vomiting or Diarrhea
Genitourinary: Reports No Symptoms
Musculoskeletal: Reports No Symptoms
Skin: Reports No Symptoms
Neuro: Reports No Symptoms
Endocrine: Reports No Symptoms
Hematologic / Lymphatic: Reports No Symptoms
Allergy / Immunology: Reports No Symptoms
Psych: Reports Anxious
Physical Exam
-
General: No Apparent Distress, Comfortable and Conversant
HEENT: Normocephalic, Atraumatic and Moist Mucous Membranes
Respiratory: Wheezes and Non Labored Respirations
Cardiac: Regular Rhythm and S1/S2
GI: Soft, Nontender and Nondistended
Musculoskeletal: No Clubbing, No Cyanosis and No Edema
Skin: Warm and Dry
Neuro: Awake, Alert, Oriented, AO x 3 and No Motor Deficits
Psych: Calm, Intact Judgement/Insight and Anxious
Data Reviewed
-
Labs: Labs Reviewed by me, Discussed with Physician, Discussed with Nurse and Discussed with Patient
[2024-09-04] MEDS: VIBRAMYCIN 100 MG PO (09:03)
[2024-09-04] MEDS: GLUCOPHAGE XR EXTENDED RELEASE 500 MG PO ×2 (09:03→17:32)
[2024-09-04] MEDS: MYSOLINE 50 MG PO ×2 (09:04→20:53)
[2024-09-04] MEDS: PROTONIX 40 MG PO (09:04)
[2024-09-04] MEDS: LEXAPRO 10 MG PO (09:04)
[2024-09-04] MEDS: MUCINEX 1200 MG PO ×2 (09:04→20:53)
[2024-09-04] MEDS: CRESTOR 20 MG PO (09:04)
[2024-09-04] MEDS: NON-FORMULARY ITEM 1 UNIT PO (09:05)
--- NOTE | 2024-09-04 10:39 | W.PN.PUL.V3 ---
Today's Communication / Plan
-
Decrease steroids-change to oral
Assess discharge. Supplemental option needs.
Discontinue antibiotics.
Outpatient pulmonary follow-up
Assessment
-
68-year-old woman with history of asthma who follows up with allergy-Dr. Galindo, admitted to the hospital with symptoms since August 23, symptoms progressed despite prednisone. Including coughing, difficulty expectorating and shortness of breath.
Found to be bronchospastic. Possible left lower lobe infiltrate. We were consulted on 09/02/2024 for evaluation.
Cough/shortness of breath: Pneumonia versus bronchitis
Chest x-ray: Possible left lower lobe abnormality atelectasis versus pneumonia
No leukocytosis
Negative for RSV acute hypoxemic respiratory insufficiency
Performed and negative
Negative COVID
Asthma: On fluticasone/salmeterol- With exacerbation
Anemia-normocytic
Conditions present prior admission:
Asthma
Rhinitis
Anxiety
Type 2 diabetes-controlled
Multiple medication allergies
Fibromyalgia
Hypertension
Hypercholesterolemia
Bipolar disorder
History of superficial thrombosis and possible DVT in the past
IBS
Migraine
Plan:
Respiratory status improving-still with some wheezing
Wean supplemental oxygen-now on room air, ambulating without significant desaturations
Aspiration precautions.
Nebulizers-Pulmicort and DuoNeb nebs
Steroids-Decadron 4 mg IV every 12 hours-convert to prednisone with slow taper until seen by pulmonary
Mucolytic's.
Incentive spirometry.
The vest therapy twice daily
Check cultures.
Empiric antibiotics-Doxycycline and ceftriaxone
Considered prolonged azithromycin for anti-inflammatory effects
DVT prophylaxis-on Lovenox.
GI prophylaxis-on pantoprazole -and Pepcid
Nutrition
Mobilization/ambulation.
Outpatient pulmonary evaluation-consideration towards Biologics if difficult to control and requiring repetitive prednisone tapers
[facility] records reviewed seen last time by our office by Dr. Villaseñor 02/2023, at that time she was doing well- No additional inhalers recommended-Her pulmonary function testing was normal-Plan was to follow-up in a year.
The patient also follows up with Dr. Galindo from asthma and allergies to treat her asthma usually on Advair and as needed albuterol.
Subjective Data
-
Date of Service:
Date of Service: September 04, 2024
Chief Complaint: Pulmonary Follow Up and Dyspnea Follow Up
Subjective:
Overall feels better, still significant shortness of breath, ambulating on room air, so some wheezing, felt like she had throat tightness or swelling after Rocephin, no current chest pain, throat tightness, or abdominal pain
Review of Systems
General: Other (per HPI)
Objective Data
Data Reviewed
Vital Signs / I&O:
Vital Signs
Temp Pulse Resp BP Pulse Ox
97.9 F 90 18 142/74 94
09/04/24 07:10 09/04/24 07:10 09/04/24 07:10 09/04/24 07:10 09/04/24 07:10
Intake and Output
09/03/24 09/04/24 09/05/24
06:59 06:59 06:59
Intake Total 2160 / 2160 1500 / 1500
Balance 2160 / 2160 1500 / 1500
SaO2: 94
Nasal Cannula flow liters per minute: 3
Physical Exam
General: Respiratory Distress (n) and Comfortable
HEENT: Anicteric and Moist Mucous Membranes
Cardiovascular: Regular Rhythm
Respiratory: Wheeze ( expiratory), Crackles ( rare basilar), Rhonchi ( expiratory), Non-Labored Respirations, Accessory Resp Muscle Use (n) and Stridor
GI: Soft, Non Distended and Non Tender
Neurology: Awake, Oriented and No Motor Deficits
Skin: Good Color, Cyanosis (n), Jaundice (n) and Rash (n)
Labs/Micro/Reports
Lab Data
09/04/24 05:15
09/04/24 05:15
Microbiology
09/01/24 09:28 Nasal Swab Influenza Types A & B (GWENDOLYN) - Final
Negative for Influenza A & B, NAAT
Negative results must be combined with clinical observations
and patient history.
Nucleic Acid Amplification test (NAAT)performed on the
[employer] platform.
--- NOTE | 2024-09-04 12:37 | W.PN.UPDATE ---
Update Note
Progress Note Update
I saw and evaluated the patient. I reviewed the resident�s note and agree with findings and plan as documented in the resident�s note.
Pt reports 'asthma attack' overnight.
Gen: NAD, AAOx3.
Eyes: EOMI, PERRLA, no scleral icterus.
Neck: supple.
CV: remains RRR, +S1/S2, no m/r/g.
Resp: mild wheezes/rhonchi
Abd: +BS, soft, NT, ND
Skin: No rashes.
Neuro: CN 2-12 intact, non-focal, tremulous.
Psych: Normal mood and affect.
CT chest:
1. Mild to moderate subpleural airspace consolidation in the basilar segments of the right lower lobe which appears new from 02/15/2023. Diagnostic possibilities are (1) mild right lower lobe pneumonia or (2) subpleural subsegmental atelectasis.
2. Mild scarring in the left lower lobe.
3. Moderately decreased bilateral lung volumes.
4. Moderately exaggerated lower thoracic kyphosis.
5. Moderate multilevel thoracic discogenic degenerative disease.
Severe sepsis acute acute hypoxemic respiratory failure due to PNA and acute asthma exac:
-RSV/COVID/Flu NEG
-pt has been on Rocephin/doxycycline since 08/30/24. Note procal NEG on 08/31/24. Today is day 6 of abx and abx can be stopped (never needed abx).
-has been on IV Decadron, can transition to Prednisone taper and discharge as per discussion with Dr. Terry
-cont pulmicort/duonebs
-pulm following
-saturating well on RA
Other problems:
Morbid obesity due to excess calorie
Anxiety/depression: cont Lexapro/nortriptyline
DM2: cont Metformin/SSI/accuchecks/diabetic diet
FULL/Lovenox
Medically cleared for d/c, case management aware.
Total time spent on d/c = 33 min. This included today's physical exam, progress note, review of laboratory and diagnostic data, preparation of discharge documents and prescriptions, and discussions about the pt's hospital course and discharge plan
with the patient and other medical equipment technician involved in the patient's care.
--- NOTE | 2024-09-04 13:08 | W.DCSUMMARY ---
Addendum entered and electronically signed by Lance Matthews MD, Resident 09/06/24 11:49:
Patient appealed her discharge on 09/04/2024 due to feeling like she had too many bronchospasms at night. Her main concern was that she might not be able to get back into a room at the hospital if needed if she were to leave. Patient's condition
remained stable for the next two days with no deterioration of her breathing. She continue to saturate well on room air but kept mentioning about her bronchospams at night. She now feels like she will be comfortable enough to go home today on
09/06/2024.
Original Note:
Discharge Summary
Discharge Data
Date of Admission: 08/30/24
Date of Discharge: 09/04/24
-
Pending Results: No
Hospital Course
Discharging Physician : Dr. Robert Schaffer, Dr. Lance Matthews
Disposition : Home with Visiting Nurse
Primary care physician : Dr. Michelle Ortega
Principal Discharge diagnosis : Acute hypoxic respiratory failure secondary to pneumonia and asthma exacerbation with bronchitis
Chronic Discharge diagnosis : Asthma, Hypertension, Bipolar Disorder, History of DVT, Well Controlled DM2, Fibromyalgia, Hyperlipidemia
Hospital Course : 68 year old female with a history of Asthma, Hypertension, and Bipolar Disorder was seen in the [facility] ED due to worsening cough and shortness of breath. Patient's cough had started on 08/23/2024 and continued to get
worse. She was started on a prednisone taper but it did not resolve her symptoms. Patient underwent a chest x-ray which showed concern for left basilar pneumonia. She also fit criteria for sepsis so was started on IV antibiotics and oxygen therapy
and admitted to the hospital. Patient continued to get better and did not have fever or leukocytosis at this time. She continued to receive respiratory therapy which helped improve her symptoms tremendously and her antibiotics were stopped. Patient
felt much better and was discharged with instructions to continue the steroid taper and also the Pulmicort which had helped manage her symptoms. She will follow up with Pulmonology and her PCP after discharge.
Important imaging findings :
CR Chest - 2 Views (08/30/2024)-
Left basilar atelectasis or pneumonia
CT Chest W/o Iv Contrast (09/02/2024)-
1. Mild to moderate subpleural airspace consolidation in the basilar segments of the right lower lobe which appears new from 02/15/2023. Diagnostic possibilities are (1) mild right lower lobe pneumonia or (2) subpleural subsegmental atelectasis.
2. Mild scarring in the left lower lobe.
3. Moderately decreased bilateral lung volumes.
4. Moderately exaggerated lower thoracic kyphosis.
5. Moderate multilevel thoracic discogenic degenerative disease.
ECG-
SINUS TACHYCARDIA
OTHERWISE NORMAL ECG
WHEN COMPARED WITH ECG OF 11-JAN-2024 07:13,
NO SIGNIFICANT CHANGE WAS FOUND
Discharge Plan
-
Patient Disposition: Home (Routine Discharge)
Discharge Diagnosis/Procedures: Acute hypoxic respiratory failure secondary to pneumonia
Condition: Good
Diet: Low Cholesterol
Activity: As tolerated
Driving Restrictions: As prior to admission
Bathing Restrictions: None
Other Services: VN
Referrals:
Samia Villaseñor MD [Active] - in two to three weeks (May see [facility] ST[facility] PREPARER)
Michelle Ortega MD [Family Provider] - in one to two weeks
Additional Discharge Medication Instructions: Prednisone 10mx a day first three days, 3x a day for 3 days, 2x a day for 3 days, 1x a day for 3 days
Take Budesonide (Pulmicort) twice a day
Prescriptions:
New
budesonide 0.5 mg/2 mL Suspension For Nebulization
0.5 mg inhalation R BID 30 Days Qty: 120 0RF
prednisone 10 mg tablet
10 mg PO DIRECTED Qty: 30 0RF
Rx Instructions:
4x a day first three days, 3x a day for 3 days, 2x a day for 3 days, 1x a day for 3 days
Continued
Centrum Silver Women 1 EACH tablet
1 tab PO DAILY
fluticasone propionate 1 SPRAY spray,suspension
2 spray intranasal DAILYPRN PRN (Reason: allergies)
nortriptyline 10 MG capsule
10 mg PO HS
albuterol sulfate 1 PUFF HFA aerosol inhaler
2 puff inhalation R Q6HPRN PRN (Reason: asthma)
escitalopram oxalate 10 MG tablet
10 mg PO DAILY
Systane Ultra (PF) 1 EACH dropperette
1 drp BOTH EYES TID
metformin 500 MG tablet extended release 24 hr
500 mg PO BID
Azo Bladder Control 300 mg Capsule
1 cap PO DAILYPRN PRN (Reason: INCREASE URINE FREQUENCY) Qty: 0
primidone 50 MG tablet
50 mg PO BID
simethicone 80 mg Tablet,Chewable
160 mg PO DAILYPRN PRN (Reason: gas pains)
fexofenadine 180 mg Tablet
180 mg PO DAILY
rosuvastatin 20 mg Tablet
20 mg PO DAILY
estradiol [Estrace] 0.01 % (0.1 mg/gram) Cream
1 g VAGINAL DAILYPRN PRN (Reason: dryness)
topiramate [Topamax] 50 mg Tablet
100 mg PO Q48H@1800
cholecalciferol (vitamin D3) [Vitamin D3] 50 mcg (2,000 unit) Tablet
50 mcg PO DAILY
rizatriptan 10 mg Tablet
10 mg PO DAILYPRN PRN (Reason: migraine)
Rx Instructions:
take 1 tab at onset of headache; if no relief may repeat 1 tab after at least 2 hrs; max = 3 tabs/24 hr
topiramate [Topamax] 50 mg Tablet
150 mg PO Q48H@1800
Visbiome 112.5 billion cell Capsule
1 cap PO DAILY
ipratropium-albuterol 0.5 mg-3 mg(2.5 mg base)/3 mL Solution For Nebulization
3 ml INHALATION R Q4HPRN PRN (Reason: sob)
famotidine 40 mg Tablet
40 mg PO HS
prednisone 20 mg Tablet
40 mg PO DAILY
Patient Comments:
08/30/24: per patient, to take for 2 more days
esomeprazole magnesium 40 mg Capsule,Delayed Release(Dr/Ec)
40 mg PO DAILY
azelastine 137 mcg (0.1 %) [place],Non-Aerosol
2 spray INTRANASAL BID
fluticasone propion-salmeterol [Advair HFA] 230-21 mcg/actuation Hfa Aerosol Inhaler
2 puff INHALATION R BID
fexofenadine [Amisha Allergy] 180 mg Tablet
180 mg PO Q24H
Patient Comments:
Pt requires brand name
Discharge Orders:
Discharge Patient (As Directed); Ordered 09/04/24
Ordered By: Lance Matthews
Discharge Date and Time
Print Language: SOMALI
--- NOTE | 2024-09-04 14:17 | CM ---
MD entered order for discharge.
Spoke with pt in room. She was weaned off oxygen .Pox 94%. Pt said she is not ready for discharge.
Dc plan was with [facility] .
IMM copy given reviewed with pt. IMM signed on chart. IMM copy given to pt.
Pt said she is not going home and will call [facility].
team physician Juliane Okeefe notified of above . Original IMM given to Juliane Okeefe.
PLAN [facility] to review.
[2024-09-04 15:10] VITALS: BP 149/99
[2024-09-04] MEDS: LOVENOX 40 MG SC (17:32)
[2024-09-04] MEDS: SENOKOT-S 1 TABLET PO (17:35)
[2024-09-04] MEDS: PEPCID 40 MG PO (20:53)
[2024-09-04] MEDS: PAMELOR 10 MG PO (20:54)
[2024-09-04] MEDS: MIRALAX 17 GRAMS PO (21:08)
[2024-09-04 23:20] VITALS: BP 127/78
[2024-09-05] MEDS: DUONEB 3 ML INH ×5 (05:36→19:54)
[2024-09-05 05:46] LABS: Hemoglobin 11.1 g/dL (12.0-16.0); Mean Corp Hgb Conc. 32.6 g/dL (33.0-37.0); Mean Corpuscular Hgb 26.4 pg (27.0-31.0); Mean Corpuscular Volume 80.8 fL (81.0-99.0); Platelet Count 330 10^3/uL (130-400); Red Blood Cell Count 4.21 10^6/uL (4.20-5.40); Red Cell Dist. Width 15.3 % (11.5-14.5)
[2024-09-05 06:00] VITALS: BMI 40.4
[2024-09-05 06:03] LABS: Blood Urea Nitrogen 17 mg/dl (7-17); Calcium 9.1 mg/dl (8.4-10.2); Carbon Dioxide 27 mmol/L (22-30); Chloride 100 mmol/L (98-107); Estimated Creatinine Clearance 92 ml/min; Glucose 89 mg/dl (70-99); Sodium 137 mmol/L (135-145); eGFR > 60.00
[2024-09-05] MEDS: PULMICORT 0.5 MG INH ×2 (07:22→19:54)
--- NOTE | 2024-09-05 07:40 | W.PN.HOSP.TC ---
Today's Communication/Plan
-
Continue with respiratory supportive therapy and oral steroids.
Assessment / Plan
Assessment / Plan
Assessment:
58 year old female with a history of Asthma, Hypertension, Bipolar Disorder, DVT was seen in the [place] ER due to worsening cough and shortness of breath. Patient was diagnosed with community acquired pneumonia and was started on IV antibiotic
treatment, breathing treatment and IV steroids. Patient had severe sepsis upon admission and her symptoms improved upon treatment.
Plan:
#Severe sepsis with acute organ dysfunction
-Source of infection due to pneumonia
-Incentive spirometer and Acapella
-procalcitonin negative (probably never had pneumonia)
-Rocephin and PO doxycycline D/Cd yesterday
-Negative for Respiratory Syncytial Virus. Negative COVID flu
#Acute hypoxic respiratory failure secondary to asthma exacerbation with bronchitis.
-Weaned to room air
-Ambulatory pulse ox for discharge
-CT Chest (09/02/2024)-
1. Mild to moderate subpleural airspace consolidation in the basilar segments of the right lower lobe which appears new from
02/15/2023. Diagnostic possibilities are (1) mild right lower lobe pneumonia or (2) subpleural subsegmental atelectasis.
2. Mild scarring in the left lower lobe.
3. Moderately decreased bilateral lung volumes.
4. Moderately exaggerated lower thoracic kyphosis.
5. Moderate multilevel thoracic discogenic degenerative disease.
-Completed 4 days of Abx
-IV steroid switched to PO prednisone
-Continue vest therapy twice daily
-Pulmonary consulted, input appreciated
-Currently on Room Air, saturating well
-Patient was not comfortable with going home yesterday even when stable as she didn't want to risk another asthma exacerbation. Decided to appeal the discharge and stayed in the hospital.
#Constipation
-Continue Senna/Colace
-Continue Miralax
-Suppository as needed
#Anxiety/depression.
-Continue Lexapro/nortriptyline
#Well Controlled DM 2
-Continue metformin.
-Insulin sliding scale while on steroid
CODE STATUS: Full code
DVT prophylaxis: Lovenox
Diet: Low-cholesterol diet
Anticipated Discharge: Within 24 hours
Subjective/Interval History
-
Date of Service: September 05, 2024
Patient says that she was able get a nice 6 hours of sleep last night. She also complains that her bronchospasms were much worse last night from 4-8pm. Still feeling very anxious about potentially leaving the hospital.
Objective Data
-
Labs:
Laboratory Results
09/05/24
05:08
WBC 8.0
Hgb 11.1 L
Hct 34.0 L
Plt Count 330
Sodium 137
Potassium 4.0
Chloride 100
Carbon Dioxide 27
BUN 17
Creatinine 0.7
Glucose 89
Calcium 9.1
Vital Signs:
Vital Signs
Temp Pulse Resp BP Pulse Ox
98.0 F 85 16 127/78 95
09/04/24 23:20 09/05/24 07:28 09/05/24 07:28 09/04/24 23:20 09/05/24 07:28
I&O
09/04/24 09/05/24 09/06/24
06:59 06:59 06:59
Intake Total 1500 / 1500 1680 / 1680
Balance 1500 / 1500 1680 / 1680
Review of Systems
-
History Source: Patient
Constitutional: Denies Fever, No Appetite, Fatigue, Sleep Disturbance, Chills or Weakness
EENT: Reports No Symptoms Reported
Respiratory: Reports Cough, Trouble Breathing and Wheezing
Cardiac: Denies Chest Pain, Palpitations or Syncope
Abdomen/GI: Denies Abdominal Pain, Nausea, Vomiting, Diarrhea or Constipated
Genitourinary: Reports No Symptoms
Musculoskeletal: Reports No Symptoms
Skin: Reports No Symptoms
Neuro: Reports No Symptoms
Endocrine: Reports No Symptoms
Hematologic / Lymphatic: Reports No Symptoms
Allergy / Immunology: Reports No Symptoms
Psych: Reports Anxious
Physical Exam
-
General: No Apparent Distress, Comfortable and Conversant
HEENT: Normocephalic, Atraumatic and Moist Mucous Membranes
Respiratory: Wheezes and Non Labored Respirations
Cardiac: Regular Rhythm and S1/S2
GI: Soft, Nontender, Nondistended and Normal Bowel Sounds
Musculoskeletal: No Clubbing, No Cyanosis and No Edema
Skin: Warm and Dry
Neuro: Awake, Alert, Oriented, AO x 3 and No Motor Deficits
Psych: Calm and Anxious
Data Reviewed
-
Labs: Labs Reviewed by me, Discussed with Physician, Discussed with Nurse and Discussed with Patient
[2024-09-05 07:44] VITALS: BP 119/61
[2024-09-05] MEDS: MUCINEX 1200 MG PO ×2 (07:51→20:11)
[2024-09-05] MEDS: GLUCOPHAGE XR EXTENDED RELEASE 500 MG PO ×2 (07:51→16:29)
[2024-09-05] MEDS: DELTASONE 40 MG PO (07:51)
[2024-09-05] MEDS: CRESTOR 20 MG PO (07:51)
[2024-09-05] MEDS: NON-FORMULARY ITEM 1 UNIT PO (07:52)
[2024-09-05] MEDS: LEXAPRO 10 MG PO (07:52)
[2024-09-05] MEDS: PROTONIX 40 MG PO (07:52)
[2024-09-05] MEDS: MYSOLINE 50 MG PO ×2 (07:52→20:11)
--- NOTE | 2024-09-05 07:53 | W.PN.UPDATE ---
Update Note
Progress Note Update
I saw and evaluated the patient. I reviewed the resident�s note and agree with findings and plan as documented in the resident�s note.
Patient reports she is having bronchospasm this morning. Complains of shortness of breath yesterday evening.
Gen: NAD, AAOx3.
Eyes: EOMI, PERRLA, no scleral icterus.
Neck: supple.
CV: continues to remain RRR, +S1/S2, no m/r/g.
Resp: B/L rhonchi
Abd: +BS, soft, NT, ND
Skin: No rashes.
Neuro: remains CN 2-12 intact, non-focal, tremulous.
Psych: Normal mood and affect.
CT chest:
1. Mild to moderate subpleural airspace consolidation in the basilar segments of the right lower lobe which appears new from 02/15/2023. Diagnostic possibilities are (1) mild right lower lobe pneumonia or (2) subpleural subsegmental atelectasis.
2. Mild scarring in the left lower lobe.
3. Moderately decreased bilateral lung volumes.
4. Moderately exaggerated lower thoracic kyphosis.
5. Moderate multilevel thoracic discogenic degenerative disease.
Severe sepsis acute acute hypoxemic respiratory failure due acute asthma exac:
-RSV/COVID/Flu NEG
-pt received Rocephin/doxycycline since 08/30/24-09/03/24. Procal NEG on 08/31/24. Bacterial pneumonia has been ruled out. The patient never needed antibiotics.
-The patient was on IV Decadron and has been transitioned to a Prednisone taper
-cont pulmicort/duonebs
-pulm following, was medically cleared for d/c by Dr. Terry on 09/04/24
-saturating well on RA
Other problems:
Morbid obesity due to excess calorie
Anxiety/depression: cont Lexapro/nortriptyline
DM2: cont Metformin/SSI/accuchecks/diabetic diet
FULL/Lovenox
The patient was discharged on September 04, 2024. She has appealed discharge. The patient remains medically stable for discharge.
--- NOTE | 2024-09-05 10:09 | W.PN.PUL.V3 ---
Today's Communication / Plan
-
.
Antibiotics discontinued.
Increase activity.
Continue nebulizers.
Prednisone 40 mg with slow taper
Assessment
-
68-year-old woman with history of asthma who follows up with allergy-Dr. Galindo, admitted to the hospital with symptoms since August 23, symptoms progressed despite prednisone. Including coughing, difficulty expectorating and shortness of breath.
Found to be bronchospastic. Possible left lower lobe infiltrate. We were consulted on 09/02/2024 for evaluation.
Cough/shortness of breath: Pneumonia versus bronchitis
Chest x-ray: Possible left lower lobe abnormality atelectasis versus pneumonia
No leukocytosis
Negative for RSV acute hypoxemic respiratory insufficiency
Performed and negative
Negative COVID
Asthma: On fluticasone/salmeterol- With exacerbation
Anemia-normocytic
Conditions present prior admission:
Asthma
Rhinitis
Anxiety
Type 2 diabetes-controlled
Multiple medication allergies
Fibromyalgia
Hypertension
Hypercholesterolemia
Bipolar disorder
History of superficial thrombosis and possible DVT in the past
IBS
Migraine
Plan:
Respiratory status improving-still with some wheezing-told patient it may last weeks and does not need hospitalization until all wheezing results
Wean supplemental oxygen-now on room air, ambulating without significant desaturations-. Room air saturation 94%
Aspiration precautions.
Nebulizers-Pulmicort and DuoNeb nebs.
Prednisone 40 mg daily with slow taper-i.e., 40 mg for 4 days, then 30 mg for 4 days, then 20 mg daily for 4 days, then 10 mg daily for 4 days, then discontinue
Mucolytic's continue
Incentive spirometry.
The vest therapy twice daily
Cultures reviewed
Empiric antibiotics-Doxycycline and ceftriaxone discontinued
DVT prophylaxis-on Lovenox.
GI prophylaxis-on pantoprazole -and Pepcid
Nutrition
Mobilization/ambulation.
Patient likely stable from a pulmonary perspective for discharge in the next 24 hours.
Reviewed with primary team
Outpatient pulmonary evaluation-consideration towards Biologics if difficult to control and requiring repetitive prednisone tapers
[facility] records reviewed seen last time by our office by Dr. Villaseñor 02/2023, at that time she was doing well- No additional inhalers recommended-Her pulmonary function testing was normal-Plan was to follow-up in a year.
The patient also follows up with Dr. Galindo from asthma and allergies to treat her asthma usually on Advair and as needed albuterol.
Subjective Data
-
Date of Service:
Date of Service: September 05, 2024
Chief Complaint: Pulmonary Follow Up and Dyspnea Follow Up
Subjective:
Overall better, however, still has occasional throat tightness, currently resolved, ambulating without oxygen, no chest pain or abdominal pain
Review of Systems
General: Other (. HPI)
Objective Data
Data Reviewed
Vital Signs / I&O:
Vital Signs
Temp Pulse Resp BP Pulse Ox
97.9 F 77 17 119/61 94
09/05/24 07:44 09/05/24 07:44 09/05/24 07:44 09/05/24 07:44 09/05/24 07:44
Intake and Output
09/04/24 09/05/24 09/06/24
06:59 06:59 06:59
Intake Total 1500 / 1500 1680 / 1680
Balance 1500 / 1500 1680 / 1680
SaO2: 94
Nasal Cannula flow liters per minute: 3
Physical Exam
General: Respiratory Distress (n) and Comfortable
HEENT: Anicteric and Moist Mucous Membranes
Cardiovascular: Regular Rhythm
Respiratory: Wheeze ( expiratory), Crackles ( rare basilar), Rhonchi ( expiratory), Non-Labored Respirations, Accessory Resp Muscle Use (n) and Stridor
GI: Soft, Non Distended and Non Tender
Neurology: Awake, Oriented and No Motor Deficits
Skin: Good Color, Cyanosis (n), Jaundice (n) and Rash (n)
Labs/Micro/Reports
Lab Data
09/05/24 05:08
09/05/24 05:08
[2024-09-05 16:01] VITALS: BP 126/78
--- NOTE | 2024-09-05 16:14 | CM ---
MD entered order for discharge.
Spoke with pt in room. She received notification that [facility] upheld and discharge is for 12 noon.tomorrow
Pt hoping night goes well.
Dc plan is with [facility] .
Pt will find a family member to drive her home.
[employer] team member Juliane Okeefe notified of above . Original IMM on chart.
PLAN Home with [facility] .
[2024-09-05] MEDS: SENOKOT-S 1 TABLET PO (16:32)
[2024-09-05] MEDS: LOVENOX SC (17:59)
[2024-09-05 19:55] VITALS: BP 144/93
--- NOTE | 2024-09-05 19:59 | PTCARENOTE ---
Tech informed this RN that pt stated 'my throat feels like it's closing and I was told I could get a STAT dose of Benadryl if I feel that way'. RN into assess pt, pt scrolling on phone w/ no signs of shortness of breath or distress. Pt pleasant and
conversing w/ this RN. BP 144/93, HR 82, 94% RA, RR 16. Pt stated 'I hope this helps and I don't have bronchospams like I did this morning, but if I have to stay until tuesday then I have to'. CARDIAC CATH LAB RADIOLOGY TECHNOLOGIST notified, one time dose of benadryl 25mg Po ordered.
RT in pt's room to administer scheduled treatment. Plan of care ongoing.
[2024-09-05] MEDS: BENADRYL 25 MG PO (20:11)
[2024-09-05 20:42] VITALS: BP 144/93
[2024-09-05] MEDS: PAMELOR 10 MG PO (21:26)
[2024-09-05] MEDS: PEPCID 40 MG PO (21:30)
[2024-09-05 23:00] VITALS: BP 131/79
[2024-09-06 05:52] LABS: Hematocrit 35.8 % (37.0-47.0); Hemoglobin 11.8 g/dL (12.0-16.0); Mean Corpuscular Hgb 26.8 pg (27.0-31.0); Mean Corpuscular Volume 81.4 fL (81.0-99.0); Mean Platelet Volume 9.2 fL (7.4-10.4); Platelet Count 360 10^3/uL (130-400); Red Cell Dist. Width 15.4 % (11.5-14.5); White Blood Cell Count 9.2 10^3/uL (4.8-10.8)
[2024-09-06 06:00] VITALS: BMI 40.5
[2024-09-06 06:16] LABS: Blood Urea Nitrogen 16 mg/dl (7-17); Calcium 9.5 mg/dl (8.4-10.2); Carbon Dioxide 27 mmol/L (22-30); Chloride 100 mmol/L (98-107); Estimated Creatinine Clearance 92 ml/min; Glucose 87 mg/dl (70-99); Potassium 4.4 mmol/L (3.5-5.1); Sodium 136 mmol/L (135-145); eGFR > 60.00
[2024-09-06] MEDS: PULMICORT 0.5 MG INH (07:13)
[2024-09-06] MEDS: DUONEB 3 ML INH ×2 (07:13→11:20)
[2024-09-06 07:44] VITALS: BP 125/72
--- NOTE | 2024-09-06 07:49 | W.PN.HOSP.TC ---
Today's Communication/Plan
-
Continue Oral Prednisone and other respiratory therapy. Monitor O2 Levels. Most likely will be discharged today.
Assessment / Plan
Assessment / Plan
Assessment:
58 year old female with a history of Asthma, Hypertension, Bipolar Disorder, DVT was seen in the [facility] due to worsening cough and shortness of breath. Patient was diagnosed with community acquired pneumonia and was started on IV antibiotic
treatment, breathing treatment and IV steroids. Patient had severe sepsis upon admission and her symptoms improved upon treatment.
Plan:
#Severe sepsis with acute organ dysfunction
-Source of infection due to pneumonia
-Incentive spirometer and Acapella
-procalcitonin negative (probably never had pneumonia)
-Finished course of Rocephin and PO doxycycline
-Negative for Respiratory Syncytial Virus. Negative COVID flu
#Acute hypoxic respiratory failure secondary to asthma exacerbation with bronchitis.
-Weaned to room air
-Ambulatory pulse ox for discharge
-CT Chest (09/02/2024)-
1. Mild to moderate subpleural airspace consolidation in the basilar segments of the right lower lobe which appears new from
02/15/2023. Diagnostic possibilities are (1) mild right lower lobe pneumonia or (2) subpleural subsegmental atelectasis.
2. Mild scarring in the left lower lobe.
3. Moderately decreased bilateral lung volumes.
4. Moderately exaggerated lower thoracic kyphosis.
5. Moderate multilevel thoracic discogenic degenerative disease.
-Completed 4 days of Abx
-IV steroid switched to PO prednisone
-Continue vest therapy twice daily
-Pulmonary consulted, input appreciated
-Currently on Room Air, saturating well
-Patient was not comfortable with going home yesterday even when stable as she didn't want to risk another asthma exacerbation. Decided to appeal the discharge and stayed in the hospital.
-Continue PO Prednisone (40mg)
-Nystatin given for oral thrush
#Constipation
-Continue Senna/Colace
-Continue Miralax
-Suppository as needed
#Anxiety/depression.
-Continue Lexapro/nortriptyline
#Well Controlled DM 2
-Continue metformin.
-Insulin sliding scale while on steroid
CODE STATUS: Full code
DVT prophylaxis: Lovenox
Diet: Low-cholesterol diet
Anticipated Discharge: Today
Subjective/Interval History
-
Date of Service: September 06, 2024
Patient says that she was able to get some sleep last night but did have to deal with some bronchospasms. She also complains of having thrush in her mouth that started after beginning pulmicort.
Objective Data
-
Labs:
Laboratory Results
09/06/24
05:11
WBC 9.2
Hgb 11.8 L
Hct 35.8 L
Plt Count 360
Sodium 136
Potassium 4.4
Chloride 100
Carbon Dioxide 27
BUN 16
Creatinine 0.7
Glucose 87
Calcium 9.5
Vital Signs:
Vital Signs
Temp Pulse Resp BP Pulse Ox
98.0 F 77 17 125/72 95
09/06/24 07:44 09/06/24 07:44 09/06/24 07:44 09/06/24 07:44 09/06/24 07:44
I&O
09/05/24 09/06/24 09/07/24
06:59 06:59 06:59
Intake Total 1680 / 1680 930 / 930
Balance 1680 / 1680 930 / 930
Review of Systems
-
History Source: Patient
Constitutional: Denies Fever, No Appetite, Fatigue or Sleep Disturbance
EENT: Reports No Symptoms Reported
Respiratory: Reports Cough and Wheezing; Denies Trouble Breathing
Cardiac: Denies Chest Pain, Palpitations or Syncope
Abdomen/GI: Denies Abdominal Pain, Nausea or Vomiting
Genitourinary: Reports No Symptoms
Musculoskeletal: Reports No Symptoms
Skin: Reports No Symptoms
Neuro: Reports No Symptoms
Endocrine: Reports No Symptoms
Hematologic / Lymphatic: Reports No Symptoms
Allergy / Immunology: Reports No Symptoms
Physical Exam
-
General: Well Developed, Well Nourished, No Apparent Distress, Comfortable and Conversant
HEENT: Normocephalic, Atraumatic and Moist Mucous Membranes
Respiratory: Wheezes and Non Labored Respirations
Cardiac: Regular Rhythm and S1/S2
GI: Soft, Nontender, Nondistended and Normal Bowel Sounds
Musculoskeletal: No Clubbing, No Cyanosis and No Edema
Skin: Warm and Dry
Neuro: Awake, Alert, Oriented and AO x 3
Psych: Calm
Data Reviewed
-
Labs: Labs Reviewed by me, Discussed with Physician, Discussed with Nurse and Discussed with Patient
[2024-09-06] MEDS: MUCINEX 1200 MG PO (09:01)
[2024-09-06] MEDS: GLUCOPHAGE XR EXTENDED RELEASE 500 MG PO (09:02)
[2024-09-06] MEDS: LEXAPRO 10 MG PO (09:02)
[2024-09-06] MEDS: PROTONIX 40 MG PO (09:02)
[2024-09-06] MEDS: DELTASONE 40 MG PO (09:03)
[2024-09-06] MEDS: CRESTOR 20 MG PO (09:03)
[2024-09-06] MEDS: MYSOLINE 50 MG PO (09:04)
[2024-09-06] MEDS: NON-FORMULARY ITEM 1 UNIT PO (09:04)
[2024-09-06] MEDS: SENOKOT-S 1 TABLET PO (09:08)
--- NOTE | 2024-09-06 10:02 | W.PN.UPDATE ---
Update Note
Progress Note Update
I saw and evaluated the patient. I reviewed the resident�s note and agree with findings and plan as documented in the resident�s note.
Patient reports shehad bronchospasm at 0500 this morning.
Gen: remains NAD, AAOx3.
Eyes: EOMI, PERRLA, no scleral icterus.
Neck: supple.
CV: RRR, +S1/S2, no m/r/g.
Resp: very mild B/L rhonchi/exp wheezes
Abd: +BS, soft, NT, ND
Skin: No rashes.
Neuro: continues to remain CN 2-12 intact, non-focal, tremulous.
Psych: Normal mood and affect.
CT chest:
1. Mild to moderate subpleural airspace consolidation in the basilar segments of the right lower lobe which appears new from 02/15/2023. Diagnostic possibilities are (1) mild right lower lobe pneumonia or (2) subpleural subsegmental atelectasis.
2. Mild scarring in the left lower lobe.
3. Moderately decreased bilateral lung volumes.
4. Moderately exaggerated lower thoracic kyphosis.
5. Moderate multilevel thoracic discogenic degenerative disease.
Severe sepsis acute acute hypoxemic respiratory failure due acute asthma exac:
-RSV/COVID/Flu NEG
-pt received Rocephin/doxycycline since 08/30/24-09/03/24. Procal NEG on 08/31/24. Bacterial pneumonia has been ruled out. The patient never needed antibiotics.
-The patient was on IV Decadron and has been transitioned to a Prednisone taper
-cont pulmicort/duonebs
-pulm following, was medically cleared for d/c by Dr. Terry on 09/04/24
-saturating well on RA
Other problems:
Morbid obesity due to excess calorie
Anxiety/depression/bipolar d/o: cont Lexapro/nortriptyline, restart Topamax.
DM2: cont Metformin/SSI/accuchecks/diabetic diet
FULL/Lovenox
Continues to remain medically cleared for d/c. The patient appealed discharge on 09/04/24.
Total time spent on d/c = 37 min. This included today's physical exam, progress note, review of laboratory and diagnostic data, preparation of discharge documents and prescriptions, and discussions about the pt's hospital course and discharge plan
with the patient and other medical office manager involved in the patient's care.
[2024-09-06] MEDS: MYCOSTATIN ORAL SUSPENSION 5 ML PO (11:50)
[2024-09-06 12:51] VITALS: BP 127/77
--- NOTE | 2024-09-06 13:22 | CM ---
Spoke with pt she is agrees with discharge.
Friend Irlanda Akhtar will drive pt home today.
[facility] set up Brittany S aware of dc.
PLAN Home with [facility]
--- NOTE | 2024-09-06 14:30 | W.PN.PUL.V3 ---
Today's Communication / Plan
-
.
Prednisone taper.
Increase activity.
Outpatient pulmonary follow-up
Assessment
-
68-year-old woman with history of asthma who follows up with allergy-Dr. Galindo, admitted to the hospital with symptoms since August 23, symptoms progressed despite prednisone. Including coughing, difficulty expectorating and shortness of breath.
Found to be bronchospastic. Possible left lower lobe infiltrate. We were consulted on 09/02/2024 for evaluation.
Cough/shortness of breath: Pneumonia versus bronchitis
Chest x-ray: Possible left lower lobe abnormality atelectasis versus pneumonia
No leukocytosis
Negative for RSV acute hypoxemic respiratory insufficiency
Performed and negative
Negative COVID
Asthma: On fluticasone/salmeterol- With exacerbation
Anemia-normocytic
Conditions present prior admission:
Asthma
Rhinitis
Anxiety
Type 2 diabetes-controlled
Multiple medication allergies
Fibromyalgia
Hypertension
Hypercholesterolemia
Bipolar disorder
History of superficial thrombosis and possible DVT in the past
IBS
Migraine
Plan:
Respiratory status continues to improve-minimal throat tightness, less wheezy and no new complaints
Wean supplemental oxygen-now on room air, ambulating without significant desaturations-. Room air saturation 94%
Aspiration precautions.
Nebulizers-Pulmicort and DuoNeb nebs..
Continue Prednisone 40 mg daily with slow taper-i.e., 40 mg for 4 days, then 30 mg for 4 days, then 20 mg daily for 4 days, then 10 mg daily for 4 days, then discontinue
Mucolytic's continue
Incentive spirometry.
The vest therapy twice daily as tolerated
Cultures reviewed
Empiric antibiotics-Doxycycline and ceftriaxone discontinued
DVT prophylaxis-on Lovenox.
GI prophylaxis-on pantoprazole -and Pepcid
Nutrition
Mobilization/ambulation.
Patient stable from a pulmonary perspective for discharge
Reviewed with primary team
Outpatient pulmonary evaluation-consideration towards Biologics if difficult to control and requiring repetitive prednisone tapers
[facility] records reviewed seen last time by our office by Dr. Villaseñor 02/2023, at that time she was doing well- No additional inhalers recommended-Her pulmonary function testing was normal-Plan was to follow-up in a year.
The patient also follows up with Dr. Galindo from asthma and allergies to treat her asthma usually on Advair and as needed albuterol.
Subjective Data
-
Date of Service:
Date of Service: September 06, 2024
Chief Complaint: Pulmonary Follow Up and Dyspnea Follow Up
Subjective:
Somewhat improved, Les, throat tightness, ambulating on room air without difficulties, no chest pain or abdominal pain
Review of Systems
General: Other ( per HPI)
Objective Data
Data Reviewed
Vital Signs / I&O:
Vital Signs
Temp Pulse Resp BP Pulse Ox
98.2 F 98 16 127/77 98
09/06/24 12:51 09/06/24 12:51 09/06/24 12:51 09/06/24 12:51 09/06/24 12:51
Intake and Output
09/05/24 09/06/24 09/07/24
06:59 06:59 06:59
Intake Total 1680 / 1680 930 / 930
Balance 1680 / 1680 930 / 930
SaO2: 98
Nasal Cannula flow liters per minute: 3
Physical Exam
General: Respiratory Distress (n) and Comfortable
HEENT: Anicteric and Moist Mucous Membranes
Cardiovascular: Regular Rhythm
Respiratory: Wheeze ( expiratory), Crackles ( rare basilar), Rhonchi ( expiratory), Non-Labored Respirations, Accessory Resp Muscle Use (n) and Stridor
GI: Soft, Non Distended and Non Tender
Neurology: Awake, Oriented and No Motor Deficits
Skin: Good Color, Cyanosis (n), Jaundice (n) and Rash (n)
Labs/Micro/Reports
Lab Data
09/06/24 05:11
09/06/24 05:11
== END 2024-09-06 13:16 | disposition home health service (06) | DRG 871 ==
LOC: 3 WEST ACU 20:05
PROVIDERS: Emergency Medicine; General Practice; Hospitalist; ADMITTING PHYSICIAN Internal Medicine; ATTENDING PHYSICIAN Internal Medicine; CONSULT PHYSICIAN Internal Medicine Critical Care Medicine; EMERGENCY PHYSICIAN Emergency Medicine; FAMILY PHYSICIAN Internal Medicine
DX: A41.9 Sepsis, unspecified organism (principal); J18.9 Pneumonia, unspecified organism; J96.01 Acute respiratory failure with hypoxia; J45.901 Unspecified asthma with (acute) exacerbation; J98.11 Atelectasis; Z68.41 Body mass index [BMI] 40.0-44.9, adult; R65.20 Severe sepsis without septic shock; E78.00 Pure hypercholesterolemia, unspecified; F31.9 Bipolar disorder, unspecified; I10 Essential (primary) hypertension; K21.9 Gastro-esophageal reflux disease without esophagitis; E11.9 Type 2 diabetes mellitus without complications; F41.9 Anxiety disorder, unspecified; E66.01 Morbid (severe) obesity due to excess calories; J31.0 Chronic rhinitis; J20.9 Acute bronchitis, unspecified; M79.7 Fibromyalgia; G43.909 Migraine, unspecified, not intractable, without status migrainosus; D64.9 Anemia, unspecified; K58.8 Other irritable bowel syndrome; M40.204 Unspecified kyphosis, thoracic region; K59.00 Constipation, unspecified; Z60.2 Problems related to living alone; Z86.718 Personal history of other venous thrombosis and embolism; Z88.5 Allergy status to narcotic agent; Z88.8 Allergy status to other drugs, medicaments and biological substances; Z88.6 Allergy status to analgesic agent; Z88.1 Allergy status to other antibiotic agents; Z91.041 Radiographic dye allergy status; Z79.51 Long term (current) use of inhaled steroids; Z79.52 Long term (current) use of systemic steroids; Z79.84 Long term (current) use of oral hypoglycemic drugs; Z11.52 Encounter for screening for COVID-19
CPT/HCPCS: 71046; 71250; 80048; 80053; 84145; 85025; 85027; 87502; 87807; 87811; 93005; 94640; 94669; 96374; 99285

== ENCOUNTER → 2024-10-16 11:30 | Outpatient (REF) | payer MEDICARE, OTHER, SELFPAY ==
[2024-10-16 12:37] LABS: % Basophils 0.9 % (0-2); % Eosinophils 1.9 % (0-6); % Immature Granulocytes 0.4 % (0-0.5); % Lymphocytes 20.9 % (20.5-51.1); % Monocytes 8.1 % (1.7-9.3); % Neutrophils 67.8 % (42.2-75.2); Absolute Basophils 0.1 10^3/uL (0-0.2); Absolute Eosinophils 0.1 10^3/uL (0-0.7); Absolute Lymphocytes 1.4 10^3/uL (1.2-3.4); Absolute Monocytes 0.6 10^3/uL (0.1-0.6); Absolute Neutrophils 4.6 10^3/uL (1.4-6.5); Hematocrit 39.9 % (37.0-47.0); Mean Corp Hgb Conc. 32.6 g/dL (33.0-37.0); Mean Corpuscular Hgb 25.9 pg (27.0-31.0); Mean Corpuscular Volume 79.6 fL (81.0-99.0); Mean Platelet Volume 9.5 fL (7.4-10.4); Nucleated Red Blood Cells % 0 %; Platelet Count 285 10^3/uL (130-400); Red Blood Cell Count 5.01 10^6/uL (4.20-5.40); Red Cell Dist. Width 15.6 % (11.5-14.5); White Blood Cell Count 6.8 10^3/uL (4.8-10.8)
[2024-10-16 13:09] LABS: ALT (SGPT) 19 U/L (0-35); AST (SGOT) 24 U/L (14-36); Albumin 4.2 g/dl (3.5-5.0); Alkaline Phosphatase 99 U/L (38-126); Blood Urea Nitrogen 17 mg/dl (7-17); Calcium 9.7 mg/dl (8.4-10.2); Carbon Dioxide 22 mmol/L (22-30); Chloride 106 mmol/L (98-107); Glucose 94 mg/dl (70-99); HDL Cholesterol 59 mg/dl; LDL Cholesterol, Calculated 91 mg/dl; Potassium 4.6 mmol/L (3.5-5.1); Sodium 138 mmol/L (135-145); Total Bilirubin 0.5 mg/dl (0.2-1.3); Total Cholesterol 180 mg/dl (50-199); Total Protein 7.1 g/dl (6.3-8.2); Triglyceride 150 mg/dl (10-149); Very Low Density Lipoprotein 30 mg/dl (0-30); eGFR > 60.00
[2024-10-16 13:30] LABS: TSH Reflex To Free T4 1.42 uIU/ml (0.47-4.68)
[2024-10-16 13:55] LABS: Glycohemoglobin (HgbA1c) 5.6 % (4.0-5.6)
== END ==
LOC: REG 11:30
PROVIDERS: ATTENDING PHYSICIAN Nurse Practitioner Family; FAMILY PHYSICIAN Internal Medicine; OTHER PHYSICIAN Nurse Practitioner Family
DX: R73.03 Prediabetes (principal); G25.0 Essential tremor; E88.810 Metabolic syndrome; Z87.01 Personal history of pneumonia (recurrent); I10 Essential (primary) hypertension; E78.00 Pure hypercholesterolemia, unspecified; D64.9 Anemia, unspecified
CPT/HCPCS: 36415; 71046; 80053; 80061; 83036; 84443; 85025

== ENCOUNTER → 2024-10-25 16:08 | Outpatient (REF) | payer MEDICARE, OTHER, SELFPAY | LOC: CLAB 16:08 | PROVIDERS: ATTENDING PHYSICIAN Specialist | DX: N39.0 Urinary tract infection, site not specified (principal) | CPT/HCPCS: 87077; 87086 ==

== ENCOUNTER → 2024-11-05 09:14 | Outpatient (REF) | payer MEDICARE, OTHER, SELFPAY | LOC: HWRAD 09:14 | PROVIDERS: ATTENDING PHYSICIAN Internal Medicine; FAMILY PHYSICIAN Internal Medicine | DX: I77.810 Thoracic aortic ectasia (principal); I77.1 Stricture of artery | CPT/HCPCS: 71250 ==

== ENCOUNTER → 2024-12-28 12:44 | Outpatient (REF) | payer MEDICARE, OTHER, SELFPAY ==
[2024-12-28 13:55] LABS: % Basophils 0.7 % (0-2); % Eosinophils 2.6 % (0-6); % Immature Granulocytes 0.4 % (0-0.5); % Lymphocytes 23.2 % (20.5-51.1); % Monocytes 8.5 % (1.7-9.3); % Neutrophils 64.6 % (42.2-75.2); Absolute Eosinophils 0.1 10^3/uL (0-0.7); Absolute Lymphocytes 1.3 10^3/uL (1.2-3.4); Absolute Monocytes 0.5 10^3/uL (0.1-0.6); Absolute Neutrophils 3.5 10^3/uL (1.4-6.5); Hematocrit 39.2 % (37.0-47.0); Hemoglobin 12.8 g/dL (12.0-16.0); Mean Corp Hgb Conc. 32.7 g/dL (33.0-37.0); Mean Corpuscular Hgb 26.1 pg (27.0-31.0); Mean Corpuscular Volume 79.8 fL (81.0-99.0); Mean Platelet Volume 9.7 fL (7.4-10.4); Nucleated Red Blood Cells % 0 %; Platelet Count 258 10^3/uL (130-400); Red Blood Cell Count 4.91 10^6/uL (4.20-5.40); Red Cell Dist. Width 16.1 % (11.5-14.5); White Blood Cell Count 5.4 10^3/uL (4.8-10.8)
[2024-12-28 14:53] LABS: ALT (SGPT) 19 U/L (0-35); AST (SGOT) 24 U/L (14-36); Albumin 4.1 g/dl (3.5-5.0); Alkaline Phosphatase 97 U/L (38-126); Blood Urea Nitrogen 14 mg/dl (7-17); Calcium 10.1 mg/dl (8.4-10.2); Carbon Dioxide 23 mmol/L (22-30); Chloride 108 mmol/L (98-107); Glucose 92 mg/dl (70-99); HDL Cholesterol 59 mg/dl; LDL Cholesterol, Calculated 102 mg/dl; Potassium 4.4 mmol/L (3.5-5.1); Sodium 143 mmol/L (135-145); Total Bilirubin 0.5 mg/dl (0.2-1.3); Total Cholesterol 204 mg/dl (50-199); Total Protein 7.1 g/dl (6.3-8.2); Triglyceride 217 mg/dl (10-149); Very Low Density Lipoprotein 43 mg/dl (0-30); eGFR > 60.00
[2024-12-28 15:15] LABS: TSH Reflex To Free T4 1.86 uIU/ml (0.47-4.68)
[2024-12-29 10:35] LABS: Glycohemoglobin (HgbA1c) 5.4 % (4.0-5.6)
== END ==
LOC: REG 12:44
PROVIDERS: ATTENDING PHYSICIAN Internal Medicine
DX: R53.83 Other fatigue (principal); E88.810 Metabolic syndrome; E78.2 Mixed hyperlipidemia; D64.9 Anemia, unspecified; I10 Essential (primary) hypertension; R73.03 Prediabetes; N39.0 Urinary tract infection, site not specified
CPT/HCPCS: 36415; 80053; 80061; 83036; 84443; 85025; 87077; 87086

== ENCOUNTER → 2025-01-30 09:31 | Outpatient (REF) | payer MEDICARE, OTHER, SELFPAY | LOC: RAD 09:31 | PROVIDERS: ATTENDING PHYSICIAN Internal Medicine; FAMILY PHYSICIAN Internal Medicine | DX: I77.819 Aortic ectasia, unspecified site (principal); I77.1 Stricture of artery | CPT/HCPCS: 76770 ==

== ENCOUNTER → 2025-02-27 14:19 | Outpatient (REF) | payer MEDICARE, OTHER, SELFPAY | LOC: WDC 14:19 | PROVIDERS: ATTENDING PHYSICIAN Obstetrics & Gynecology; FAMILY PHYSICIAN Internal Medicine | DX: Z12.31 Encounter for screening mammogram for malignant neoplasm of breast (principal) | CPT/HCPCS: 77063; 77067 ==

== ENCOUNTER → 2025-03-05 11:32 | Outpatient (REF) | payer MEDICARE, OTHER, SELFPAY ==
[2025-03-05 12:25] LABS: Blood Urea Nitrogen 19 mg/dl (7-17)
== END ==
LOC: REG 11:32
PROVIDERS: ATTENDING PHYSICIAN Psychiatry & Neurology Neurology; FAMILY PHYSICIAN Internal Medicine
DX: N18.9 Chronic kidney disease, unspecified (principal)
CPT/HCPCS: 36415; 82565; 84520

== ENCOUNTER 2025-03-18 07:05 | Outpatient (RCR) | payer MEDICARE, OTHER, SELFPAY | END 2025-03-18 23:59 | disposition home or self-care (01) | LOC: ROT 07:05 | PROVIDERS: ATTENDING PHYSICIAN Psychiatry & Neurology Neurology; FAMILY PHYSICIAN Internal Medicine | DX: G25.0 Essential tremor (principal); Z73.6 Limitation of activities due to disability | CPT/HCPCS: 97166; 97535 ==

== ENCOUNTER 2025-04-08 09:43 | Outpatient (RCR) | payer MEDICARE, OTHER, SELFPAY | END 2025-04-11 11:00 | disposition home or self-care (01) | LOC: ROT 09:43 | PROVIDERS: ATTENDING PHYSICIAN Psychiatry & Neurology Neurology; FAMILY PHYSICIAN Internal Medicine | DX: G25.0 Essential tremor (principal); Z73.6 Limitation of activities due to disability | CPT/HCPCS: 97110; 97530; 97535 ==

== ENCOUNTER → 2025-04-23 10:48 | Outpatient (REF) | payer MEDICARE, OTHER, SELFPAY ==
[2025-04-23 11:46] LABS: Hematocrit 41.2 % (37.0-47.0); Hemoglobin 13.3 g/dL (12.0-16.0); Mean Corp Hgb Conc. 32.3 g/dL (33.0-37.0); Mean Corpuscular Volume 81.1 fL (81.0-99.0); Nucleated Red Blood Cells % 0 %; Platelet Count 265 10^3/uL (130-400); Red Cell Dist. Width 15.2 % (11.5-14.5)
[2025-04-23 12:24] LABS: ALT (SGPT) 17 U/L (0-35); AST (SGOT) 23 U/L (14-36); Albumin 4.4 g/dl (3.5-5.0); Alkaline Phosphatase 95 U/L (38-126); Blood Urea Nitrogen 18 mg/dl (7-17); Calcium 10.2 mg/dl (8.4-10.2); Carbon Dioxide 24 mmol/L (22-30); Chloride 109 mmol/L (98-107); Glucose 98 mg/dl (70-99); HDL Cholesterol 62 mg/dl; LDL Cholesterol, Calculated 129 mg/dl; Potassium 4.6 mmol/L (3.5-5.1); Sodium 140 mmol/L (135-145); Total Protein 7.5 g/dl (6.3-8.2); Very Low Density Lipoprotein 29 mg/dl (0-30); eGFR > 60.00
[2025-04-23 13:22] LABS: Glycohemoglobin (HgbA1c) 5.3 % (4.0-5.6)
== END ==
LOC: REG 10:48
PROVIDERS: ATTENDING PHYSICIAN Internal Medicine
DX: R73.03 Prediabetes (principal); I10 Essential (primary) hypertension; D64.9 Anemia, unspecified; E78.2 Mixed hyperlipidemia; Z01.818 Encounter for other preprocedural examination; E78.00 Pure hypercholesterolemia, unspecified
CPT/HCPCS: 36415; 80053; 80061; 83036; 84443; 85025

== ENCOUNTER → 2025-05-24 13:46 | Outpatient (REF) | payer MEDICARE, OTHER, SELFPAY | LOC: RAD 13:46 | PROVIDERS: ATTENDING PHYSICIAN Internal Medicine; FAMILY PHYSICIAN Internal Medicine | DX: R05.3 Chronic cough (principal); J45.40 Moderate persistent asthma, uncomplicated | CPT/HCPCS: 71046 ==

== ENCOUNTER → 2025-07-10 16:26 | Outpatient (REF) | payer MEDICARE, OTHER, SELFPAY ==
[2025-07-10 19:08] LABS: Urine Character Clear (Clear)
[2025-07-10 19:49] LABS: Urine Red Blood Cell 0-2 /HPF (0-2)
== END ==
LOC: CLAB 16:26
PROVIDERS: ATTENDING PHYSICIAN Specialist
DX: N39.0 Urinary tract infection, site not specified (principal)
CPT/HCPCS: 81003; 81015; 87086

== ENCOUNTER → 2025-07-31 14:22 | Outpatient (REF) | payer MEDICARE, OTHER, SELFPAY ==
[2025-07-31 16:21] LABS: Urine Character Clear (Clear)
[2025-07-31 16:54] LABS: Urine Red Blood Cell 0-2 /HPF (0-2); Urine White Cell >100 /HPF (0-5)
== END ==
LOC: REG 14:22
PROVIDERS: ATTENDING PHYSICIAN Specialist
DX: N39.0 Urinary tract infection, site not specified (principal)
CPT/HCPCS: 81003; 81015; 87077; 87086

== ENCOUNTER → 2025-08-21 10:39 | Outpatient (REF) | payer MEDICARE, OTHER, SELFPAY ==
[2025-08-21 12:14] LABS: Urine Character Slightly Cloudy (Clear)
[2025-08-21 12:15] LABS: Hematocrit 37.5 % (37.0-47.0); Hemoglobin 12.1 g/dL (12.0-16.0); Mean Corp Hgb Conc. 32.3 g/dL (33.0-37.0); Mean Corpuscular Volume 80.3 fL (81.0-99.0); Nucleated Red Blood Cells % 0 %; Platelet Count 230 10^3/uL (130-400); Red Cell Dist. Width 16.6 % (11.5-14.5)
[2025-08-21 12:29] LABS: Urine Red Blood Cell 0-2 /HPF (0-2); Urine Squamous Cell 0-2 /LPF (Few); Urine White Cell >100 /HPF (0-5)
[2025-08-21 12:57] LABS: ALT (SGPT) 22 U/L (0-35); AST (SGOT) 25 U/L (14-36); Albumin 4.1 g/dl (3.5-5.0); Alkaline Phosphatase 91 U/L (38-126); Blood Urea Nitrogen 14 mg/dl (7-17); Calcium 9.4 mg/dl (8.4-10.2); Carbon Dioxide 25 mmol/L (22-30); Chloride 108 mmol/L (98-107); Glucose 88 mg/dl (70-99); HDL Cholesterol 65 mg/dl; LDL Cholesterol, Calculated 89 mg/dl; Potassium 4.0 mmol/L (3.5-5.1); Sodium 140 mmol/L (135-145); Total Protein 7.1 g/dl (6.3-8.2); Very Low Density Lipoprotein 22 mg/dl (0-30); eGFR > 60.00
[2025-08-21 13:28] LABS: Glycohemoglobin (HgbA1c) 5.6 % (4.0-5.9)
== END ==
LOC: REG 10:39
PROVIDERS: ATTENDING PHYSICIAN Internal Medicine; OTHER PHYSICIAN Internal Medicine; OTHER PHYSICIAN Specialist
DX: N39.0 Urinary tract infection, site not specified (principal); I10 Essential (primary) hypertension; E78.00 Pure hypercholesterolemia, unspecified; R73.03 Prediabetes; E66.01 Morbid (severe) obesity due to excess calories; J18.9 Pneumonia, unspecified organism; M79.7 Fibromyalgia
CPT/HCPCS: 80053; 80061; 81003; 81015; 83036; 84443; 85025; 87077; 87086; 87186